=== PATIENT | female | born 2000 | race Caucasian/White ===

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

== ENCOUNTER 2022-06-12 19:27 | Emergency (ER) | payer MEDICAID, SELFPAY ==
[2022-06-12 19:33] VITALS: BP 112/87; PULSE 105; RESP 16; TEMP 36.7; O2SAT 98
[2022-06-12 19:55] LABS: Bilirubin Negative (Negative); Blood Negative (Negative); Clarity Cloudy (Clear); Glucose Negative (Negative); Ketones Negative (Negative); Leukocyte Esterase Negative (Negative); Nitrite Negative (Negative); Specific Gravity 1.025 (1.005-1.025); Urobilinogen 0.2 EU/dL (Up TO 0.2); pH 7.5 (5-8)
[2022-06-12 20:00] LABS: Abs Immature Grans 0.02 10^3/uL (0.0-0.06); Absolute Basophil Count 0.06 10^3/uL (0.0-0.2); Absolute Lymphocyte Count 1.69 10^3/uL (1.2-3.4); Absolute Monocyte Count 0.42 10^3/uL (0.1-0.8); Absolute Neutrophil Count 4.56 10^3/uL (1.2-6.7); Basophils % 0.9; Eosinophils % 1.5; HCT 45.6 % (36.0-46.0); HGB 14.8 g/dL (11.2-15.7); Immature Grans % 0.3; Lymphocytes % 24.7; MCH 28.2 pg (27.0-33.0); MCHC 32.5 % (32.0-36.0); MCV 87 fL (80-95); MPV 11.8 fL (8.0-11.0); Monocytes % 6.1; Neutrophils % 66.5; Platelet Count 221 10^3/uL (130-400); RBC 5.25 10^6/uL (3.93-5.22); RDW 12.7 % (11.7-14.6); RDW-SD 40.2 fL; WBC 6.85 10^3/uL (4.4-10.8)
[2022-06-12 20:14] LABS: ALT 24 U/L (14-59); AST 13 U/L (15-37); Albumin 4.1 g/dL (3.4-5.0); Alkaline Phosphatase 80 U/L (46-116); Anion Gap 6.3 mmol/L (3-11); BUN 10 mg/dL (7-18); Bilirubin, Total 0.2 mg/dL (0.2-1.0); CO2 31.7 mmol/L (21.0-32.0); Calcium 9.4 mg/dL (8.5-10.1); Chloride 105 mmol/L (98-107); Estimated GFR 83.23 (mL/min/1.73m2); Glucose 108 mg/dL (74-106); Lipase 105 U/L (73-393); Potassium 3.5 mmol/L (3.5-5.1); Sodium 143 mmol/L (136-145); Total Protein 8.4 g/dL (6.4-8.2)
--- NOTE | 2022-06-12 20:15 | DI.CT_ITS ---
Exam(s) CT ABDOMEN PELVIS W EXAM: CT ABDOMEN PELVIS W INDICATION: RLQ abd pain, vomiting, diarrhea. COMPARISON: No exams were available for comparison TECHNIQUE: FINDINGS: CT examination of the abdomen and pelvis was performed with intravenous infusion of 75 cc of Omnipaqu e 350. Images obtained through the lung bases are unremarkable. The liver is unremarkable in appearance. Gallbladder and bile ducts are CT normal. Pancreas appears normal. Spleen is unremarkable in appearance. Adrenals appear normal. The kidneys are unremarkable with no evidence of hydronephrosis, nephrolithiasis, or renal mass.. Ur inary bladder unremarkable. Abdominal aorta is of normal diameter and no major vascular abnormality is seen. No abdominal wall hernia. No abdominal or pelvic adenopathy. [employer] AD[employer] structures appear intact. Appendix is not specifically visualized but there is no evidence of appendicitis. No evidence of div erticulitis or bowel obstruction. IMPRESSION: Negative CT examination of the abdomen and pelvis. RADIATION DOSE DELIVERED: 506.77mGy.cm Total DLP 506.77mGy.cm Total DLP !Error CTDIvol RADIATION OPTIMIZATION: All CT scans at this facility use at least one of these dose optimization te chniques: automated exposure control; mA and/or kV adjustment per patient size (includes targeted exa ms where dose is matched to clinical indication); or iterative reconstruction.
--- NOTE | 2022-06-12 20:17 | ED.GENADUL_ITS ---
Discharge Plan Disposition Patient Disposition: HOME Condition: Improving Discharge Details Clinical Impression: Abdominal pain, vomiting, and diarrhea Primary Care Provider: Savanah Kennedy ED Provider: Tiara Lim Home Meds and New Rx's Prescriptions: Continued norgestimate-ethinyl estradiol [Estarylla] 0.25-35 mg-mcg Tablet 1 tab PO DAILY Discharge Instructions Instructions: Acute Nausea and Vomiting (ED), Acute Diarrhea (ED), Abdominal Pain (ED) Additional Instructions: Your blood test and imaging today are reassuring and show no evidence of acute concerning or significant findings. Drink plenty of fluids and get plenty of rest. Take the Zofran as needed and directed for nausea and vomiting. Follow-up with your primary care doctor in 1 week. Return to the emergency department with any worsening or new concerning symptoms. Stand Alone Forms: Work Release Discharge Data Discharge Physician: Tiara Lmi Medical Decision Making 21-year-old female presents with right-sided abdominal pain, nausea, vomiting and diarrhea for the past 6 days. Heart rate 105. Remainder of vitals within normal limits. Her abdomen is soft but tender throughout, mostly on the right side and right lower quadrant. No rigidity or guarding. Differential diagnosis includes appendicitis, colitis, gastroenteritis, UTI, pyelonephritis, ovarian cyst. Will place an IV, bolus IV fluids, screening labs, CT abdomen pelvis and give a dose of IV Toradol, IV Zofran and reassess. Labs and imaging reviewed and unremarkable. Normal white blood cell count. Normal electrolytes. Normal lipase. Urinalysis within normal limits. CT abdomen and pelvis negative for acute findings. Patient reassessed and she is still complaining of some burning abdominal pain. We will give a dose of Pepcid and GI cocktail and reassess. 2229 --patient reassessed and she feels much better and would like to go home. She was given Zofran to go. Advised to increase fluids and rest and follow-up bland diet until symptoms improved. Advised to follow up with the primary care doctor for re-evaluation. Usual and customary return precautions given prior to discharge. Medical Records Medical records reviewed: Yes I reviewed the patient's medical records. Imaging Data Radiologic Study: Radiologist's impression: CT Abdomen And Pelvis With Contrast Exam date and time: 06/12/2022 8:46 PM Age: 21 years old Clinical indication: Abdominal pain; Localized; Right lower quadrant (rlq); Patient HX: Rlq abd pain, vomiting, diarrhea; Additional info: R/O appendicitis, colitis, diverticulitis, pyelo TECHNIQUE: Imaging protocol: Computed tomography of the abdomen and pelvis with contrast. Radiation optimization: All CT scans at this facility use at least one of these dose optimization techniques: automated exposure control; mA and/or kV adjustment per patient size (includes targeted exams where dose is matched to clinical indication); or iterative reconstruction. Contrast material: OMNIPAQUE 350; Contrast volume: 75 ml; Contrast route: INTRAVENOUS (IV);? COMPARISON: No relevant prior studies available. FINDINGS: Liver: Normal. No mass. Gallbladder and bile ducts: Normal. No calcified stones. No ductal dilation. Pancreas: Normal. No ductal dilation. Spleen: Normal. No splenomegaly. Adrenal glands: Normal. No mass. Kidneys and ureters: Normal. No hydronephrosis. Stomach and bowel: There is no evidence of small or large bowel inflammation. There is no evidence for bowel obstruction. Appendix: No evidence of appendicitis. Intraperitoneal space: There is no free intraperitoneal air. There is no evidence of free intraperitoneal fluid. Vasculature: Unremarkable. No abdominal aortic aneurysm. Lymph nodes: Unremarkable. No enlarged lymph nodes. Urinary bladder: Unremarkable as visualized. Reproductive: Unremarkable as visualized. Bones/joints: Unremarkable. No acute fracture. Soft tissues: Unremarkable. IMPRESSION: No acute process within the abdomen or pelvis identified. Lab Data Lab results reviewed: Yes I reviewed the patient's lab results. Labs: Laboratory Tests Range/Units 06/12/22 06/12/22 06/12/22 19:45 19:53 19:53 WBC (4.4-10.8) 10^3/uL 6.85 RBC (3.93-5.22) 10^6/uL 5.25 H Hgb (11.2-15.7) g/dL 14.8 Hct (36.0-46.0) % 45.6 MCV (80-95) fL 87 MCH (27.0-33.0) pg 28.2 MCHC (32.0-36.0) % 32.5 RDW (11.7-14.6) % 12.7 Plt Count (130-400) 10^3/uL 221 MPV (8.0-11.0) fL 11.8 H Immature Gran % 0.3 Neutrophils % 66.5 Lymphocytes % 24.7 Monocytes % 6.1 Eosinophils % 1.5 Basophils % 0.9 Nucleated RBC % (0.0-0.3) % 0.0 Absolute Neutrophils (1.2-6.7) 10^3/uL 4.56 Absolute Lymphocytes (1.2-3.4) 10^3/uL 1.69 Absolute Monocytes (0.1-0.8) 10^3/uL 0.42 Absolute Eosinophils (0.0-0.7) 10^3/uL 0.10 Absolute Basophils (0.0-0.2) 10^3/uL 0.06 Sodium (136-145) mmol/L 143 Potassium (3.5-5.1) mmol/L 3.5 Chloride (98-107) mmol/L 105 Carbon Dioxide (21.0-32.0) mmol/L 31.7 Anion Gap (3-11) mmol/L 6.3 BUN (7-18) mg/dL 10 Creatinine (0.55-1.02) mg/dL 1.0 Est GFR (CKD-EPI 2020) (mL/min/1.73m2) 83.23 Glucose (74-106) mg/dL 108 H Calcium (8.5-10.1) mg/dL 9.4 Total Bilirubin (0.2-1.0) mg/dL 0.2 AST (15-37) U/L 13 L ALT (14-59) U/L 24 Alkaline Phosphatase (46-116) U/L 80 Total Protein (6.4-8.2) g/dL 8.4 H Albumin (3.4-5.0) g/dL 4.1 Lipase (73-393) U/L 105 Urine Color (Yellow) Yellow Urine Clarity (Clear) Cloudy Urine pH (5-8) 7.5 Ur Specific [place] (1.005-1.025) 1.025 Urine Protein (Negative) mg/dL Negative Urine Ketones (Negative) mg/dL Negative Urine Blood (Negative) Negative Urine Nitrite (Negative) Negative Urine Bilirubin (Negative) Negative Urine Urobilinogen (Up TO 0.2) EU/dL 0.2 Ur Leukocyte Esterase (Negative) Negative Urine Glucose (Negative) mg/dL Negative HPI General Mode of arrival: ambulatory . Date/Time Provider Initiated Documentation: 06/12/22 19:28 . Limitations to Documentation: no limitations . Information obtained by: patient . HPI Narrative: Patient is a 21-year-old female presents the ED with complaint of abdominal pain, nausea, vomiting and diarrhea for the past 6 days. She states her abdominal pain has been constant burning and intermittent sharp. She states the pain has been diffuse at times and is now mainly in her right side of her abdomen. She states the pain is worse with movement. She states the pain is currently 7/10. She has not taken any medication for pain today. She states she initially thought her symptoms were secondary to type food she ate 6 days ago. She states she vomited food 3 days ago and has been having difficulty eating due to nausea since then. She states she has had 2 episodes of loose brown diarrhea since her pain started. She denies any fever or urinary symptoms. She denies any recent travel or recent antibiotics. Related Data Home Medications Medication Instructions Recorded Confirmed norgestimate 0.25 mg-ethinyl 1 tab PO DAILY 06/12/22 06/12/22 estradiol 35 mcg tablet (Estarylla) Allergies Allergy/AdvReac Type Severity Reaction Status Date / Time flinstone vitamin gummie Allergy Uncoded 06/12/22 19:38 General Stated Complaint: Abd Prob MIESHA: 3 Review of Systems All systems reviewed & are unremarkable except as noted in HPI and below Constitutional Constitutional: Reports as per HPI, Denies chills and Denies fever(s) Eyes Eyes: Denies blurry vision ENT Ears, Nose, Mouth, and Throat: Denies dizziness, Denies sore throat and Denies throat swelling Cardiovascular Cardiovascular: Denies chest pain and Denies dyspnea Respiratory Respiratory: Denies cough and Denies dyspnea Gastrointestinal Gastrointestinal: Reports abdominal pain, Reports diarrhea, Reports nausea and Reports vomiting Genitourinary Genitourinary: Denies hematuria and Denies dysuria Musculoskeletal Musculoskeletal: Denies back pain and Denies numbness Integumentary/Breasts Skin/Breast: Denies lesions and Denies rash Neurologic Neurologic: Denies dizziness, Denies localized weakness and Denies numbness Allergic/Immunologic Allergic/Immunologic: Denies throat swelling PFSH All Active Problems (Updated 06/12/22 @ 22:34 by Tiara Lim DO) Abdominal pain, vomiting, and diarrhea (Acute) Medical History (Updated 10/19/22 @ 22:34 by Tiara Lim DO) No significant past medical history Surgical History (Updated 06/12/22 @ 20:27 by Tiara Lim DO) No significant past surgical history Social History Smoking/Tobacco Use Status: Never Smoking risk assessment performed?: Yes Drug use: Occasionally Substance use type: marijuana Exam Const General: cooperative and no acute distress Orientation: alert, awake and oriented x3 HENMT Head: normal to inspection Face and sinus: normal facial exam Eyes General: appearance normal, both eyes and all related structures Pupils: PERRL EOM: EOM intact bilaterally Neck Neck: normal visual inspection and No submandibular swelling Lymphatic: no lymphadenopathy noted Chest Chest: normal inspection of the chest and no tenderness Resp Effort & Inspection: normal respiratory effort and able to speak in complete sentences Auscultation: clear to auscultation bilaterally Cardio Rate: regular rate Rhythm: regular rhythm GI Inspection: normal to inspection Palpation: soft, not firm, not rigid and tender in the RLQ, in the RUQ and suprapubicly Auscultation: hypoactive bowel sounds Skin General skin exam: no rashes or lesions noted Neuro General: patient alert, patient awake and patient oriented x3 Cognition: normal cognition Speech: speech normal Motor: muscle tone normal throughout Sensory Exam: no sensory deficits noted Extrem General: normal to inspection, full ROM, capillary refill normal, no calf tenderness bilaterally and no edema Psych Appearance: grossly normal Mental Status: mental status grossly normal Speech and Movement: speech and movement normal Affect: normal affect Course Vital Signs Vital signs: Vital Signs Temperature 98.1 F 06/12/22 19:33 Pulse 105 H 06/12/22 19:33 Respiratory Rate 16 06/12/22 19:33 Blood Pressure 112/87 06/12/22 19:33 Pulse Oximetry 98 06/12/22 19:33 Temperature 98.1 F 06/12/22 19:33 Temperature Source Skin 06/12/22 19:33 Pulse 105 H 06/12/22 19:33 Respiratory Rate 16 06/12/22 19:33 Respiratory Effort 06/12/22 19:33 Blood Pressure 112/87 06/12/22 19:33 Blood Pressure Position Sitting 06/12/22 19:33 Pulse Oximetry 98 06/12/22 19:33 Oxygen Delivery Method Room Air 06/12/22 19:33 Oxygen Flow Rate 0 06/12/22 19:33 Pain Level 8 06/12/22 19:33 Lab/Test Results Lab/Test Results: Laboratory Tests Range/Units 06/12/22 06/12/22 06/12/22 19:45 19:53 19:53 WBC (4.4-10.8) 10^3/uL 6.85 RBC (3.93-5.22) 10^6/uL 5.25 H Hgb (11.2-15.7) g/dL 14.8 Hct (36.0-46.0) % 45.6 MCV (80-95) fL 87 MCH (27.0-33.0) pg 28.2 MCHC (32.0-36.0) % 32.5 RDW (11.7-14.6) % 12.7 Plt Count (130-400) 10^3/uL 221 MPV (8.0-11.0) fL 11.8 H Immature Gran % 0.3 Neutrophils % 66.5 Lymphocytes % 24.7 Monocytes % 6.1 Eosinophils % 1.5 Basophils % 0.9 Nucleated RBC % (0.0-0.3) % 0.0 Absolute Neutrophils (1.2-6.7) 10^3/uL 4.56 Absolute Lymphocytes (1.2-3.4) 10^3/uL 1.69 Absolute Monocytes (0.1-0.8) 10^3/uL 0.42 Absolute Eosinophils (0.0-0.7) 10^3/uL 0.10 Absolute Basophils (0.0-0.2) 10^3/uL 0.06 Sodium (136-145) mmol/L 143 Potassium (3.5-5.1) mmol/L 3.5 Chloride (98-107) mmol/L 105 Carbon Dioxide (21.0-32.0) mmol/L 31.7 Anion Gap (3-11) mmol/L 6.3 BUN (7-18) mg/dL 10 Creatinine (0.55-1.02) mg/dL 1.0 Est GFR (CKD-EPI 2020) (mL/min/1.73m2) 83.23 Glucose (74-106) mg/dL 108 H Calcium (8.5-10.1) mg/dL 9.4 Total Bilirubin (0.2-1.0) mg/dL 0.2 AST (15-37) U/L 13 L ALT (14-59) U/L 24 Alkaline Phosphatase (46-116) U/L 80 Total Protein (6.4-8.2) g/dL 8.4 H Albumin (3.4-5.0) g/dL 4.1 Lipase (73-393) U/L 105 Urine Color (Yellow) Yellow Urine Clarity (Clear) Cloudy Urine pH (5-8) 7.5 Ur Specific [place] (1.005-1.025) 1.025 Urine Protein (Negative) mg/dL Negative Urine Ketones (Negative) mg/dL Negative Urine Blood (Negative) Negative Urine Nitrite (Negative) Negative Urine Bilirubin (Negative) Negative Urine Urobilinogen (Up TO 0.2) EU/dL 0.2 Ur Leukocyte Esterase (Negative) Negative Urine Glucose (Negative) mg/dL Negative POC- Test(urine) Negative
[2022-06-12] MEDS: Omnipaque 350 MG/ML 100 ML BTL IJ (20:28)
[2022-06-12] MEDS: Normal Saline Flush 10 ML SYR IVP (20:29)
[2022-06-12] MEDS: Ketorolac 30 MG/ML VIAL IVP (20:34)
[2022-06-12] MEDS: Normal Saline 1,000 ML 1000 ML IV (20:35)
[2022-06-12] MEDS: Ondansetron 4 MG/2 ML VIAL IVP (20:36)
--- NOTE | 2022-06-12 21:19 | DI.VRAD_ITS ---
PROCEDURE INFORMATION: Exam: CT Abdomen And Pelvis With Contrast Exam date and time: 06/12/2022 8:46 PM Age: 21 years old Clinical indication: Abdominal pain; Localized; Right lower quadrant (rlq); Patient HX: Rlq abd pain, vomiting, diarrhea; Additional info: R/O appendicitis, colitis, diverticulitis, pyelo TECHNIQUE: Imaging protocol: Computed tomography of the abdomen and pelvis with contrast. Radiation optimization: All CT scans at this facility use at least one of these dose optimization techniques: automated exposure control; mA and/or kV adjustment per patient size (includes targeted exams where dose is matched to clinical indication); or iterative reconstruction. Contrast material: OMNIPAQUE 350; Contrast volume: 75 ml; Contrast route: INTRAVENOUS (IV); COMPARISON: No relevant prior studies available. FINDINGS: Liver: Normal. No mass. Gallbladder and bile ducts: Normal. No calcified stones. No ductal dilation. Pancreas: Normal. No ductal dilation. Spleen: Normal. No splenomegaly. Adrenal glands: Normal. No mass. Kidneys and ureters: Normal. No hydronephrosis. Stomach and bowel: There is no evidence of small or large bowel inflammation. There is no evidence for bowel obstruction. Appendix: No evidence of appendicitis. Intraperitoneal space: There is no free intraperitoneal air. There is no evidence of free intraperitoneal fluid. Vasculature: Unremarkable. No abdominal aortic aneurysm. Lymph nodes: Unremarkable. No enlarged lymph nodes. Urinary bladder: Unremarkable as visualized. Reproductive: Unremarkable as visualized. Bones/joints: Unremarkable. No acute fracture. Soft tissues: Unremarkable. IMPRESSION: No acute process within the abdomen or pelvis identified. Dictated and Authenticated by: Lon Rodriguez MD. Ordering:KAL Menjivar MD
[2022-06-12] MEDS: Famotidine 20 MG/2 ML VIAL IVP (21:48)
[2022-06-12 21:58] VITALS: BP 112/68; PULSE 88; RESP 18; TEMP 36.8; O2SAT 100
== END 2022-06-12 22:44 | disposition home or self-care (01) ==
PROVIDERS: Emergency Provider Physician Assistant; PCP Nurse Practitioner Family
DX: R10.31 Right lower quadrant pain (principal); R11.2 Nausea with vomiting, unspecified; R19.7 Diarrhea, unspecified
CPT/HCPCS: 80053; 81025; 83690; 96361; 96374; 96375; 99285; 74177; 81003; 85025; 99284; J1885; J2405; J3490

== ENCOUNTER 2022-07-10 17:12 | Outpatient (REF) | payer MEDICAID, SELFPAY | END 2022-07-10 17:13 | disposition home or self-care (01) | LOC: NCHCN 17:12 | PROVIDERS: PCP Nurse Practitioner Family; Visit Provider Family Medicine | DX: R30.0 Dysuria (principal) | CPT/HCPCS: 87077; 87086; 87186 ==

== ENCOUNTER 2022-07-20 10:27 | Emergency (ER) | payer MEDICAID, SELFPAY ==
[2022-07-20 10:35] VITALS: BP 111/79; PULSE 96; RESP 18; TEMP 36.9; O2SAT 100
--- NOTE | 2022-07-20 11:11 | ED.GENADUL_ITS ---
Discharge Plan Disposition Patient Disposition: Home Condition: Stable Discharge Details Clinical Impression: Tonsillitis Primary Care Provider: Savanah Kennedy ED Provider: Jesse Albarran Home Meds and New Rx's Prescriptions: New amoxicillin-pot clavulanate 875-125 mg tablet 1 tab PO BID Qty: 20 0RF Continued norgestimate-ethinyl estradiol [Estarylla] 0.25-35 mg-mcg Tablet 1 tab PO DAILY Discharge Instructions Instructions: Tonsillitis (ED) Additional Instructions: A single dose of Decadron and Augmentin was provided here in the ER. Continue Augmentin as directed. [id number] medications as directed for symptomatic control. Plenty of fluids to avoid dehydration. Salt water gargles as tolerated. Please watch for new or worsening symptoms and return to the ER for any concerns. Lastly, I do recommend contacting your primary care provider on Friday to discuss your ER visit and need for outpatient reevaluation. Medical Decision Making 21-year-old female who reports URI-like symptoms that began Friday but subsequently seems to have consolidated in her throat, reports throat swelling and pain worsening throughout the week. She states that she was actually seen by her PCP yesterday for her annual physical, evaluation revealed a negative s trep test, negative COVID test, likely viral and will treat with [id number] medications. She states this morning woke up much worse. Clinically she appears well, nontoxic, is afebrile, airway is patent. She does report subjective fevers, she does have cervical lymphadenopathy, and bilateral tonsillar hypertrophy with exudates. Airway is patent. She is able to manage her own secretions. Clinically I do believe that initiating antibiotic therapy is perfectly reasonable as well as a single dose of 10 mg p.o. Decadron. A rapid strep test was done per protocol and was negative. Symptoms have been worsening throughout the week, much worse this morning. No signs of peritonsillar or tonsillar abscess, trismus, nuchal rigidity, etc. Patient was able to tolerate p.o. Decadron and Augmentin with pudding here in the ER. Declined any viscous lidocaine for discomfort. Standard discharge and return precautions were provided. Patient understands, is agreeable to this plan, and has no additional questions or concerns upon discharge. This documentation was generated using [employer] system, please disregard any oddities of phrase or misspellings. Medical Records Medical records reviewed: Yes I reviewed the patient's medical records. Lab Data Lab results reviewed: Yes I reviewed the patient's lab results. Labs: 07/20/22 11:01 Pharynx Group A Streptococcus Culture - Pending Sign Out No HPI General Mode of arrival: ambulatory . Date/Time Provider Initiated Documentation: 07/20/22 10:44 . Limitations to Documentation: no limitations . Information obtained by: patient . History of Present Illness 21 year old F presents to the emergency department with the chief complaint of sore throat, described as moderate, with intensity rated at 7. Quality is described as aching, and is localized to the neck (throat). Patient reports no radiation. Patient started experiencing this day(s) (5) and it has been other (worsening). No relieving factors improve symptom(s), Other factors that worsen symptoms (swallowing) . Patient notes fever/chills (subjective). Patient did receive the following treatments prior to arrival, other (otc meds, no relief) Related Data Home Medications Medication Instructions Recorded Confirmed norgestimate 0.25 mg-ethinyl 1 tab PO DAILY 06/12/22 07/20/22 estradiol 35 mcg tablet (Estarylla) amoxicillin 875 mg-potassium 1 tab PO BID #20 tabs 07/20/22 clavulanate 125 mg tablet Previous Rx's Medication Instructions Recorded amoxicillin 875 mg-potassium 1 tab PO BID #20 tabs 07/20/22 clavulanate 125 mg tablet Allergies Allergy/AdvReac Type Severity Reaction Status Date / Time flinstone vitamin gummie Allergy Uncoded 07/20/22 10:38 General Stated Complaint: Sorethroat MIESHA: 4 Review of Systems Constitutional Constitutional: Reports fever(s) ENT Ears, Nose, Mouth, and Throat: Reports sore throat Cardiovascular Cardiovascular: Denies chest pain and Denies dyspnea Respiratory Respiratory: Denies cough and Denies dyspnea Gastrointestinal Gastrointestinal: Denies abdominal pain, Denies nausea and Denies vomiting Integumentary/Breasts Skin/Breast: Denies rash PFSH All Active Problems (Updated 07/20/22 @ 11:30 by ENZO Mejias) Tonsillitis (Acute) Medical History No significant past medical history Surgical History No significant past surgical history Social History Smoking/Tobacco Use Status: Never Smoking risk assessment performed?: Yes Drug use: Never Substance use type: does not use Do you feel safe at home: Yes Do you feel safe in your relationship?: Yes Exam Const General: cooperative, healthy appearing, comfortable and no acute distress Orientation: alert and awake [facility] Head: normal to inspection, normocephalic and atraumatic Ears: external ears normal, TM's normal bilaterally and EAC's normal General nose exam: external nose normal Face and sinus: normal facial exam Mouth: tongue normal and moist mucous membranes Throat: uvula midline, abnormal tonsil bilaterally exudates and hypertrophy 3+, no peritonsillar masses, posterior oropharynx abnormal erythema and exudates, uvula not displaced and no uvular edema Eyes General: appearance normal, both eyes and all related structures Conjunctivae: conjunctivae normal Neck Neck: normal visual inspection, full ROM, no meningeal signs, trachea midline, supple, lymphadenopathy bilateral anterior cervical and tender (Lymphadenopathy) Resp Effort & Inspection: normal respiratory effort and able to speak in complete sentences Auscultation: clear to auscultation bilaterally Cardio Rate: regular rate Rhythm: regular rhythm GI Palpation: soft and nontender Skin General skin exam: no rashes or lesions noted Neuro General: patient alert, patient awake, moves all extremities and no focal motor deficits Sensory Exam: no sensory deficits noted Psych Appearance: grossly normal Mental Status: mental status grossly normal Course Vital Signs Vital signs: Vital Signs Temperature 36.9 C 07/20/22 10:35 Pulse 96 H 07/20/22 10:35 Respiratory Rate 18 07/20/22 10:35 Blood Pressure 111/79 07/20/22 10:35 Pulse Oximetry 100 07/20/22 10:35 Temperature 36.9 C 07/20/22 10:35 Temperature Source Oral 07/20/22 10:35 Pulse 96 H 07/20/22 10:35 Respiratory Rate 18 07/20/22 10:35 Respiratory Effort Non-Labored 07/20/22 10:39 Blood Pressure 111/79 07/20/22 10:35 Blood Pressure Position Sitting 07/20/22 10:35 Pulse Oximetry 100 07/20/22 10:35 Oxygen Delivery Method Room Air 07/20/22 10:35 Oxygen Flow Rate 0 07/20/22 10:35 PAWSS Have you Been Recently Intoxicated or Drunk Within the Last 30 days?: No Have you Ever Experienced Previous Episodes of Alcohol Withdrawal?: No Have you ever Experienced Withdrawal Seizures?: No Have you ever Experienced Delirium Tremens(DT)s?: No Have you ever undergone Alcohol Rehabilitation Treatment (i.e, inpt ot outpatient treatment programs)?: No Have you ever Experienced Blackouts?: No Have you ever Combined Alcohol with other Downers within the last 90 days?: No Have you ever Combined Alcohol with any other Substance of Abuse during the last 90 days?: No Positive Blood Alcohol level on Presentation? [PCS.BAL]: No Evidence of Increased Autonomic Activity (i.e. HR>120, tremor, sweating, agitation, nausea)?: No Result: 0
[2022-07-20] MEDS: Dexamethasone 4 MG TAB 10 MG PO (11:31)
[2022-07-20] MEDS: Amoxicillin 875/Clav. 125 TAB PO (11:32)
== END 2022-07-20 12:10 | disposition home or self-care (01) ==
PROVIDERS: Emergency Provider Physician Assistant; PCP Nurse Practitioner Family
DX: J03.90 Acute tonsillitis, unspecified (principal); R59.0 Localized enlarged lymph nodes
CPT/HCPCS: 87880; 99283; 87081; 99284; J8540

== ENCOUNTER 2022-07-23 14:05 | Outpatient (REF) | payer MEDICAID, SELFPAY ==
[2022-07-23 14:44] LABS: HCT 40.9 % (36.0-46.0); HGB 13.1 g/dL (11.2-15.7); MCH 27.6 pg (27.0-33.0); MCV 86 fL (80-95); MPV 11.7 fL (8.0-11.0); Platelet Count 195 10^3/uL (130-400); RBC 4.74 10^6/uL (3.93-5.22); RDW 13.7 % (11.7-14.6); RDW-SD 43.8 fL; WBC 10.31 10^3/uL (4.4-10.8)
[2022-07-23 14:53] LABS: Mono Screening POSITIVE (Negative)
[2022-07-23 15:05] LABS: ALT 26 U/L (14-59); AST 21 U/L (15-37); Albumin 3.3 g/dL (3.4-5.0); Alkaline Phosphatase 74 U/L (46-116); Anion Gap 5.9 mmol/L (3-11); BUN 7 mg/dL (7-18); Bilirubin, Total 0.4 mg/dL (0.2-1.0); CO2 29.1 mmol/L (21.0-32.0); CREATININE 0.8 mg/dL (0.55-1.02); Chloride 100 mmol/L (98-107); Estimated GFR 108.78 (mL/min/1.73m2); Glucose 86 mg/dL (74-106); Potassium 3.8 mmol/L (3.5-5.1); Sodium 135 mmol/L (136-145); Total Protein 7.7 g/dL (6.4-8.2)
[2022-07-23 15:11] LABS: Absolute Eosinophil Count 0.21 10^3/uL (0.0-0.7); Absolute Lymphocyte Count 2.89 10^3/uL (1.2-3.4); Absolute Monocyte Count 1.34 10^3/uL (0.1-0.8); Absolute Neutrophil Count 5.88 10^3/uL (1.2-6.7); Atypical Lymphocytes % 12; Bands % 2; Diff Comment Manual Differential; RBC Morphology Normal
== END 2022-07-23 14:06 | disposition home or self-care (01) ==
LOC: NCHCN 14:05
PROVIDERS: PCP Nurse Practitioner Family; Visit Provider Nurse Practitioner Family
DX: J03.90 Acute tonsillitis, unspecified (principal)
CPT/HCPCS: 80053; 85025; 86308

== ENCOUNTER 2022-09-12 13:12 | Outpatient (REF) | payer MEDICAID, SELFPAY ==
[2022-09-14 11:51] LABS: COVID-19 RT-PCR UVMMC Result Negative (Negative)
== END 2022-09-12 13:13 | disposition home or self-care (01) ==
LOC: LBN 13:12
PROVIDERS: PCP Nurse Practitioner Family; Visit Provider Physician Assistant Medical
DX: Z20.822 Contact with and (suspected) exposure to COVID-19 (principal); J03.90 Acute tonsillitis, unspecified
CPT/HCPCS: U0003

== ENCOUNTER 2023-11-04 21:12 | Outpatient (REF) | payer SELFPAY | END 2023-11-04 21:13 | disposition home or self-care (01) | LOC: LBN 21:12 | PROVIDERS: PCP Nurse Practitioner Family; Visit Provider Nurse Practitioner Family | DX: R07.0 Pain in throat (principal); B34.9 Viral infection, unspecified | CPT/HCPCS: 87070 ==

== ENCOUNTER 2023-11-10 01:40 | Emergency (ER) | payer SELFPAY ==
[2023-11-10 01:43] VITALS: BP 111/70; PULSE 101; RESP 18; TEMP 36.5; O2SAT 96
--- NOTE | 2023-11-10 01:54 | W.ED.GENAD ---
Discharge Plan Disposition Patient Disposition: Home Condition: Good Discharge Details Clinical Impression: Acute left otitis media, URI, acute, Strep throat Primary Care Provider: Savanah Kennedy ED Provider: Charly Reynolds Home Meds and New Rx's Prescriptions: New amoxicillin-pot clavulanate [Augmentin] 250-62.5 mg/5 mL suspension for reconstitution 17.5 ml PO BID 7 Days Qty: 245 0RF No Action norgestimate-ethinyl estradiol [Estarylla] 0.25-35 mg-mcg Tablet 1 tab PO DAILY Discharge Instructions Instructions: Ear Infection (ED), Upper Respiratory Infection (ED) Additional Instructions: At this time your results are positive for strep throat, as well as a left-sided ear infection. Please continue to take 600 mg of Motrin every 6 hours and 750 mg of Tylenol every 6 hours for pain and swelling. You have been given a dose of steroids which will help get your tonsils down in size. Please take the antibiotic for coverage of the bacterial infection. I will contact you if your results of the COVID flu or RSV are positive. If you notice any worsening of your symptoms, or any new symptoms such as vomiting, diarrhea, fever, chills, shortness of breath, chest pain, numbness, weakness, or fainting , please return immediately to the emergency department for reevaluation. Please follow up with your primary care provider as soon as possible for reassessment and reevaluation. As always, it was a pleasure participating in your medical care today. Stand Alone Forms: Work Release HPI General Date/Time Provider Initiated Documentation: 11/10/23 01:42. HPI Narrative: This is a pleasant 23-year-old female with no significant past medical history who presents today for evaluation of fever chills sore throat. Patient states that about a week or so ago she was exposed to someone who had the flu. She does work at a daycare center. On 11/05/2023 she went to urgent care, flu test was negative at that time, and she was recommended for continued supportive care. Unfortunately she has had continued worsening of her symptoms of sore throat, chills, intermittent fever. She denies any cough. Mild myalgias and achiness throughout. No vomiting or diarrhea. Mild headache. No neck pain or stiffness. She has been taking Tylenol but this has not been significantly helping. She does not take pills. She has no other complaints at this time. No other modifying factors. Related Data Home Medications Medication Instructions Recorded Confirmed norgestimate 0.25 mg-ethinyl 1 tab PO DAILY 06/12/22 11/10/23 estradiol 35 mcg tablet (Estarylla) amoxicillin 250 mg-potassium 17.5 ml PO BID 7 days #245 mL 11/10/23 clavulanate 62.5 mg/5 mL oral suspension (Augmentin) Previous Rx's Medication Instructions Recorded amoxicillin 250 mg-potassium 17.5 ml PO BID 7 days #245 mL 11/10/23 clavulanate 62.5 mg/5 mL oral suspension (Augmentin) Allergies Allergy/AdvReac Type Severity Reaction Status Date / Time flinstone vitamin gummie Allergy Skin Rash Uncoded 11/10/23 01:53 General Stated Complaint: GenMedical MIESHA: 3 Review of Systems All systems reviewed & are unremarkable except as noted in HPI and below Exam Narrative Exam Narrative: 1.Const: Well-nourished, Well-developed, appearing stated age 2.Eyes: PERRL, no conjunctival injection, and symmetrical lids. 3.ENT: Atraumatic external nose and ears. Moist MM. Neck: Symmetric, trachea midline, No thyromegaly. Mild tonsillar enlargement bilaterally, tonsil group size is 3+. Mild evidence of left-sided otitis media. Right tympanic membrane unremarkable. Patient demonstrates good movement of cervical neck. There is no nuchal rigidity, no nuchal tenderness. Patient is able to flex the neck without any difficulty or significant pain. Negative Kernig's and Brudzinski sign. 4.CVS: +S1/S2, No murmurs or gallops. Peripheral pulses 2+ and equal in all extremities. Brisk capillary refill in all extremities. 5.RESP: Unlabored respiratory effort. Clear to auscultation bilaterally. No wheezes rales or rhonchi 6.GI: Soft, Nontender/Nondistended, No hepatosplenomegaly. No guarding or rebound. 7.MSK: Normocephalic/Atraumatic, Extremities w/o deformity or ttp No cyanosis or clubbing, Normal movement of all extremities 8.Skin: Warm, Dry. No rashes or lesions. 9.Neuro: hiv prevention specialist II-XII grossly intact. Sensation grossly intact, no focal neurologic deficits. 10.Psych: (AAO) x3. Appropriate mood and affect Course Vital Signs Vital signs: Vital Signs Temperature 36.5 C 11/10/23 01:43 Pulse 101 H 11/10/23 01:43 Respiratory Rate 18 11/10/23 01:43 Blood Pressure 111/70 11/10/23 01:43 Pulse Oximetry 96 11/10/23 01:43 Temperature 36.5 C 11/10/23 01:43 Pulse 101 H 11/10/23 01:43 Respiratory Rate 18 11/10/23 01:43 Respiratory Effort Normal 11/10/23 01:48 Respiratory Depth Normal 11/10/23 01:48 Respiratory Pattern Normal 11/10/23 01:48 Blood Pressure 111/70 11/10/23 01:43 Pulse Oximetry 96 11/10/23 01:43 Oxygen Delivery Method Room Air 11/10/23 01:43 Oxygen Flow Rate 0 11/10/23 01:43 Pain Level 8 11/10/23 01:43 Medical Decision Making This is a pleasant 23-year-old female with no significant past medical history who presents today for evaluation of fever chills sore throat. Patient states that about a week or so ago she was exposed to someone who had the flu. She does work at a daycare center. On 11/05/2023 she went to urgent care, flu test was negative at that time, and she was recommended for continued supportive care. Unfortunately she has had continued worsening of her symptoms of sore throat, chills, intermittent fever. She denies any cough. Mild myalgias and achiness throughout. No vomiting or diarrhea. Mild headache. No neck pain or stiffness. She has been taking Tylenol but this has not been significantly helping. She does not take pills. She has no other complaints at this time. No other modifying factors. Exam demonstrates well-appearing female, no meningeal signs, no neck stiffness. She does have mild left-sided otitis media, as well as mild to moderate enlargement of tonsils. Tonsil size is around a 3+. Tonsils are not touching. Airway if not obstructed. With the patient's evidence of otitis media, we will treat this with Augmentin on an outpatient basis. With the patient's tonsils, we will test for strep. We will test for flu COVID and RSV. Patient would like to go home, and we will contact her with the results. We will give Motrin here, as well as a dose of Decadron for coverage of her enlarged tonsils. No severe purulence on the tonsils, no evidence of fulminant tonsillitis requiring surgical management. Patient otherwise stable for discharge. Discussed red flags for which to return. I have extensively reviewed the treatment plan and discharge instructions with the patient. I have addressed all patient concerns at this time. The patient was made aware of what symptoms to monitor for that would warrant a return to the emergency department. Discussed the plan with the patient, they demonstrate verbal understanding and agreement with our assessment and plan at this time. The documentation in this chart was dictated using [employer] dictation software. Please excuse any dictation errors. Strep test is positive. Patient was informed. Augmentin has been sent to her pharmacy. COVID flu and RSV has returned negative. Contacted the patient discussed this with her. Quality:SDOH Health Related Social Needs: No Data to Display PFSH All Active Problems (Updated 11/10/23 @ 02:06 by Charly Reynolds DO) Strep throat (Acute) URI, acute (Acute) Acute left otitis media (Acute) Medical History No significant past medical history Surgical History No significant past surgical history Social History Smoking/Tobacco Use Status: Never Smoking risk assessment performed?: Yes Drug use: Never Substance use type: does not use Do you feel safe at home: Yes Do you feel safe in your relationship?: Yes
[2023-11-10] MEDS: Ibuprofen 100 MG/5 ML CUP 800 MG PO (02:03)
[2023-11-10] MEDS: Dexamethasone 10 MG/ML VIAL PO (02:03)
[2023-11-10 02:28] LABS: COVID-19 PCR Negative (Negative); Influenza A PCR Negative (Negative); Influenza B PCR Negative (Negative); RSV PCR Negative (Negative); Source Nasopharynx
== END 2023-11-10 02:11 | disposition home or self-care (01) ==
LOC: ER 02:26
PROVIDERS: Emergency Provider Student in an Organized Health Care Education/Training Program; PCP Nurse Practitioner Family
DX: J02.0 Streptococcal pharyngitis (principal); R50.9 Fever, unspecified; J06.9 Acute upper respiratory infection, unspecified; H66.92 Otitis media, unspecified, left ear; Z20.828 Contact with and (suspected) exposure to other viral communicable diseases
CPT/HCPCS: 87637; 87880; 99283; J1100

== ENCOUNTER 2024-09-22 09:42 | Outpatient (REF) | payer OTHER, SELFPAY ==
--- OUTSIDE RECORDS SUMMARY | 2024-09-22 09:44 | XMS_ITS | Encounter Summary ---
Author Organization [facility] Address [address] [place] [address] Care Team Providers Care Field Training Manager Name Role Phone Savanah Kennedy SUSANA Primary Care Provider [phone] Encounter Details Date Type Department Care Team (Late st Contact Info) Description 09/09/2011 Results Only [facility] Pediatric Endocrinology - [facility] [address] [place], [place] [id number] Maddy Romero MD [address] [address] Social History Tobacco Use Types Packs/Day Years Used Date Smoking Tobacco: Never Assessed Comments Unknown Sex and Gender Information Value Date Recorded Sex Assigned at Female 08/15/2024 1:13 EST Legal Sex Female 18:33 EST Gender Identity Female 09/12/2022 14:14 EST Sexual Orientation Not on file documented as of this encounter Plan of Treatment Upcoming Encounters Date Type Department Care Team (Late st Contact Info) Description 11/18/2024 8:50 EDT Office Visit [facility] ENT [address] [place] [address] Varinder Parson MD [address] [facility] [address] [place] [address] documented as of this encounter Procedures Procedure Name Priority Date/Time Associated Diagnosis Comments SMEAR REVIEW Routine 09/09/2011 14:54 EST CYTOGENETICS Routine 09/09/2011 0:00 EST documented in this encounter Results * SMEAR REVIEW (09/09/2011 14:54 EST) Smear scan only: Slide was examined by a technologist to verify the WBC and/or platelet count. RITA PEREIRA 09/09/2011 14:5 4 EST 09/09/2011 15:07 EST us Maddy Romero MD HEMATOLOGY & PF4 ORDERABLES Fi nal Result RITA AMBROSIO [facility] [address] [place] [address] * CYTOGENETICS (09/09/2011 0:00 EST) Pathology Report: CYTOGENETICS REPORT Reports generated via electronic interface contain original data; however they are lacking the format of the original report. Caution should be taken when reading/interpreti ng unformatted reports. Name: ? EVERARDO PEREZ ? Accession #: ? [id number] : ? 2000 (Age: 11) ??F ?Collect Date: ? 09/09/2011 Location: ? [facility] ? Receive Date: ? 09/09/2011 Provider: ? MADDY HUYNH MD Copy to: ?SOTO HAMMER MD ? INTERPRETATION: ? Normal female karyotype ? Document reviewed and electronically signed by: ? SOTO HAMMER MD ? Report Date: ??09/25/2011 17:02 CLINICAL HISTORY: ? Failure to thrive ? clinical diagnosis code: ??783.41 SPECIMEN: ? Peripheral Blood ?? TEST PERFORMED: ? G-banded Karyotype ?? REPORT: ? No. Cells Counted: ??20 No. Cells Analyzed: ??7 No. Cells Karyotyped: ??7 Band Resolution: ??700-800 KARYOTYPE: ? 46,XX End of Report RITA PEREIRA 09/09/2011 09/09/2011 15: 27 EST us Maddy Romero MD PATHOLOGY ORDERABLES Final Res ult Performing Organization Address City/State/[facility] Co de Phone Number SALINASJESENIA PEREIRA [address] [place] [address] documented in this encounter Visit Diagnoses Not on filedocumented in this encounter Care Teams Field Training Manager Relationship Specialty Start Date End Date Savanah Kennedy FNP [address] [place] [address] PCP - General 07/03/11 06/16/17 documented as of this encounter
--- OUTSIDE RECORDS SUMMARY | 2024-09-22 09:44 | XMS_ITS | Encounter Summary ---
Author Organization [facility] Address [address] [place] [address] Care Team Providers Care Supervisor Fusing Room Name Role Phone Savanah Kennedy SUSANA Primary Care Provider [phone] Reason for Visit * Reason Onset Date Comments Results 09/17/2011 Encounter Details Date Type Department Care Team (Late st Contact Info) Description 09/17/[address] [facility] Pediatric Endocrinology - [facility] [place] [address] [place], [place] [id number] Teri Sanchez, [place] [address] [place] [address] FTT (failure to thrive) (Primary Dx) Social History Tobacco Use Types Packs/Day Years [...] Info) Description 11/18/2024 8:50 EDT Office Visit [facility] ENT [address] [place] [address] Varinder Parson MD [address] [facility] [address] [place] [address] documented as of this encounter Procedures Procedure Name Priority Date/Time Associated Diagnosis Comments FOLATE Routine 05/08/2011 URINE CHEMICAL (DIP) & SEDIMENT (MICRO) WITHOUT REFLEX TO CULTURE Routine 04/28/2011 SED RATE Routine 04/28/2011 COMPLETE BLOOD COUNT Routine 04/28/2011 TSH Routine 04/28/2011 COMPREHENSIVE METABOLIC PANEL (CMP) Routine 04/28/2011 documented in this encounter Results * FOLATE (05/08/2011) Folate, External >24.0 3 - 17 EXTERNAL LAB Blood specimen (specimen) 05/08/2011 Historical Provider CHEMISTRY & BLOOD GAS ORD ERABLES Edited EXTERNAL LAB * (ABNORMAL) COMPREHENSIVE METABOLIC PANEL (CMP) (04/28/2011) GFR, Calculated, External EXTERNAL LAB Glucose, Serum, External 80 EXTERNAL LAB Albumin, External EXTERNAL LAB Total Alkaline Phosphatase, External 321 EXTERNAL LAB ALT, External 29(A) 30 - 65 EXTERNAL LAB AST, External 21 EXTERNAL LAB BUN, External 13 EXTERNAL LAB Calculated Calcium, External EXTERNAL LAB Calcium, External 9.4 EXTERNAL LAB Chloride, External 103 EXTERNAL LAB CO2, External 28.8 EXTERNAL LAB Creatinine, External 0.5(A) 0.6 - 1.0 EXTERNAL LAB Fasting?, External EXTERNAL LAB Potassium, External 4.1 EXTERNAL LAB Sodium, External 139 EXTERNAL LAB Total Protein, External 7.3 EXTERNAL LAB Bilirubin, Total, External 0.32 EXTERNAL LAB Blood specimen (specimen) 04/28/2011 Historical Provider CHEMISTRY & BLOOD GAS ORD ERABLES Final Result EXTERNAL LAB * HEMAGRAM (04/28/2011) HCT, External EXTERNAL LAB MCH, External EXTERNAL LAB MCV, External EXTERNAL LAB MCHC, External EXTERNAL LAB Hemoglobin, External EXTERNAL LAB WBC, External 4.06 EXTERNAL LAB RBC, External EXTERNAL LAB PLT, External EXTERNAL LAB RDW-CV, External EXTERNAL LAB Blood specimen (specimen) 04/28/2011 Result [facility] Historical Provider HEMATOLOGY & PF4 ORDERABL ES Final Result Performing Organization Address [facility] Co de Phone Number EXTERNAL LAB * SED. RATE:WESTERGREN (04/28/2011) Sed. Rate Westergren, External 8 EXTERNAL LAB Blood specimen (specimen) 04/28/2011 Result [facility] Historical Provider HEMATOLOGY & PF4 ORDERABL ES Final Result Performing Organization Address [facility] de Phone Number EXTERNAL LAB * TSH (04/28/2011) TSH, External 2.30 0.36 - 3.74 EXTERNAL LAB Blood specimen (specimen) 04/28/2011 Result [facility] Provider CHEMISTRY & BLOOD GAS ORD ERABLES Final Result Performing Organization Address [facility] de Phone Number EXTERNAL LAB * UA WITH MICROSCOPIC (04/28/2011) Protein UA, External neg EXTERNAL LAB pH UA, External EXTERNAL LAB UA Comment, External EXTERNAL LAB Specific [place], Urine, External 1.020 EXTERNAL LAB Squam Epithel, UA, External EXTERNAL LAB Glucose UA, External neg EXTERNAL LAB WBC UA, External EXTERNAL LAB Blood UA, External EXTERNAL LAB Bilirubin UA, External EXTERNAL LAB Nitrite UA, External neg EXTERNAL LAB Leukocyte Esterase UA, External neg EXTERNAL LAB Clarity UA, External EXTERNAL LAB Renal Epithelial, External EXTERNAL LAB Bacteria, External EXTERNAL LAB Mucus, UA, External EXTERNAL LAB Ketones UA, External neg EXTERNAL LAB Casts, External EXTERNAL LAB Color UA, External EXTERNAL LAB Crystals, External EXTERNAL LAB RBC UA, External EXTERNAL LAB Urobilinogen UA, External EXTERNAL LAB Urine specimen (specimen) 04/28/2011 Result [facility] Historical Provider URINALYSIS ORDERABLES Fin al Result EXTERNAL LAB documented in this encounter Visit Diagnoses Diagnosis FTT (failure to thrive)- Primary Failure to thrive in childhood documented in this encounter Care Teams Supervisor Fusing Room Relationship Specialty Start Date End Date Savanah Kennedy FNP [address] [place] [address] PCP - General 07/03/11 06/16/17 documented as of this encounter
--- OUTSIDE RECORDS SUMMARY | 2024-09-22 09:44 | XMS_ITS | Encounter Summary ---
Author Organization [facility] Address [address] [place] [address] Care Team Providers Care Deputy Felony Clerk Name Role Phone Savanah Kennedy SUSANA Primary Care Provider [phone] Reason for Visit * Reason Comments Failure To Thrive Encounter Details Date Type Department Care Team (Latest Contact Info) Description 09/09/2011 13:00 EST Office Visit [facility] Pediatric Endocrinology - [facility] [address], [place] [address] Maddy Romero MD [id number] [address] FTT (failure to thrive) (Primary Dx) Discharge Disposition: Auto Discharge Social History Tobacco Use Types Packs/Day Years Used Date Smoking Tobacco: Never Assessed Comments Unknown Sex and Gender Information Value Date Recorded Sex Assigned at Female 08/15/2024 1:13 EST Legal Sex Female 18:33 EST Gender Identity Female 09/12/2022 14:14 EST Sexual Orientation Not on file documented as of this encounter Last Filed Vital Signs Vital Sign Reading Time Taken Comments Blood Pressure 106/50 09/09/2011 1248 EST Pulse 82 09/09/2011 1248 EST Temperature - - Respiratory Rate - - Oxygen Saturation - - Inhaled Oxygen Concentration - - Weight 21.7 kg (47 lb 13.4 oz) 09/09/2011 1248 EST Height 122.4 cm (4' 0.17) 09/09/2011 1 248 EST 122.35, 122.35, 122.35 Body Mass Index 14.5 09/09/2011 1248 EST Body Mass Index Percentile 14.51% 09/09 1248 EST Growth Chart: CDC (Girls, 2- 20 Years) documented in this encounter Discharge Disposition Disposition Code Departure Means Destination Auto Discharge documented in this encounter Progress Notes * Maddy Olvera MD - 09/09/20112046 EST Pediatric Endocrinology Consult Patient Identification: 11 y.o. 0 m.o. old female Reason for consultation: failure to thrive with a poor weight gain Date of service: 09/09/2011 Requesting Provider: Savanah Kennedy Primary Care Provider: Savanah Kennedy FNP History obtained from: patient, parents and chart review HPI: Individuals concerned: mother and primary care physician Growth concern: both height and weight but slow/no weight gain more concerning lately Growth limitations: none reported Growth pre-occupation: no Teasing/Bullying: no Vandana has been always tiny. She has been growing bellow but parallel (for her height and weight) to the 5th percentile since age 6 years. Her weight gain has been suboptimal, as per parents, she did not gain any weight for the last year. She was briefly taking Pediasure shakes and was on high protein diet for a month in the past, as per parents she still did not gain any weight. Based on PCP's note, with increased caloric intake, Vandana did seem to gain weight quite nicely, however subsequent month has not gain any. Itwas unclear to me if at that time, she was on supplements. Vandana eats frequently, but parents admit that she is very picky. Her meal portions are similar toher 2 years older sister who is reportedly average height and weight. Vandana has daily bowel movements, recently more loose, diarrhea like without blood, mucous or fat particles. She does not complain of abdominal pain, has no nausea or frequent emesis. Lately, she was loosing clumps of hair, possibly having small bald spot in occipital area. Mom is not sure if Vandana ever had a hair growth in that spot. Vandana has not been loosing any other hair.Since mom cut Vandana's hair much shorter, it seems to be stronger and falling out less. Vandana sleeps well through the night, she has been always very energetic. Of note, she got first baby tooth at age 8 mo and lost the first primary tooth at age 6 years. Positive for: Poor weight gain: did not gain any weight for the past year Picky eater Hair loss: in clumps, noted small bald spot in occiput, unclear if ever hair growth in that area, no other body hair loss Nocturia: occasionally, no recent increase in frequency; no polyuria, no polydipsia, no enuresis Snoring, no reported apnea Dry skin: always, in winter usually worse Diarrhea: lately stool loose, diarrhea like Negative for: headaches, visual changes, fatigue, temperature intolerance, abdominal pain, constipation, polyuria, polydipsia and arthralgias Review of Systems: A ten point review of systems was performed. Pertinent items are noted in the HPI, all others are negative. Problem List Patient Active Problem List Diagnoses ??? FTT (failure to thrive) Petite, Ht & Wt proportional; poor weight gain, reported normal linear growth. Battery of screening labs sent. Past Medical History: History reviewed. No pertinent past medical history. History: Length: 19.5 inches Weight: 3062 g (6 lb 12 oz) One: Two: Ten: Delivery Method: Vaginal, Spontaneous Delivery [250] Gestational Age: 40 Comments: Medications: No current outpatient prescriptions on file. Allergies: Allergies Allergen Reactions ??? Other - See Comments Cassidy's Drug Multivitamin- Patient's skin turned red from head to toe Social History: Living Conditions ??? Lives with Parents Weekdays ??? Education Grade 3 ??? Reported academic performance Excellent Family History: family history includes Diabetes in an other family member; Heart Attack Under 50 in her maternal grandfather; High Cholesterol in her paternal grandfather, paternal grandmother, and another family member; Hypertension in her maternal grandfather and maternal uncle; Short Stature in her mother and another family member; and Thyroid Disease in her paternal grandmother. There is no history of Thyroid Cancer/Nodule, and Infertility, and in Infancy, and SIDS, and Cystic Fibrosis, and Inflammatory Bowel Disease, and Crohn's Disease, and Celiac Disease, . Family Stature History: Mother: height 4 ft 11.5 in inches and menarche at 13-14 years old Father: height 5 ft 9 in inches and puberty same as peers Physical Exam: Vitals: BP 106/50 Pulse 82 Ht 122.4 cm (48.17) Wt 21.7 kg (47 lb 13.4 oz) BMI 14.50 kg/m2 80.5% systolic and 22.9% diastolic of BP percentile by age, sex, and height. Height: 1.224 m (4' 0.17) (3.55%) Weight: 21.7 kg (47 lb 13.4 oz) (3.24%) Body mass index is 14.50 kg/(m^2). 14.68% of growth percentile based on BMI-for-age. General Appearance: comfortable, well-hydrated and in no apparent distress Dysmorphisms: none appreciated Head: normocephalic ENT: moist mucous membranes and oropharnyx clear Eyes: EOMI, TABATHA and normal undilated fundoscopy Thyroid: no palpable goiter Lymphatic: no palpable lymphadenopathy of neck Respiratory: clear, no wheezes or crackles and good air entry bilaterally Cardiovascular: RRR, normal S1 and S2 and no murmur Gastrointestinal: benign, soft, non-tender, no palpable masses and no hepatosplenomegaly Neurologic: cranial nerves II-XII intact, 2+ DTRs and no tremor Musculoskeletal: no appreciable bony deformities, no clubbing and no scoliosis Skin: normal temperature, normal texture, normal turgor, no hyperpigmentation and no LB spots Sexual Development: deferred Data Review/Investigations: Date: 05/08/11 TSH 2.3 CBC normal, ESR 8 CMP normal UA: 12/1019, negative protein/glucose/ketones Previous Growth Data: reviewed growth curves provided by referring physician and scanned to PRISM ht and wt curve for age at one curve, no percentiles available linear growth appears steady weight gain fluctuating with episodes of weight loss between the visits Assessment: 11 y.o. 0 m.o. old female with no significant past medical history who is of a petite size. Vandana has been growing at/bellow but parallel to the 5th percentile for her height and weight with recent (over the last year) poor weight gain. Reportedly she has a good appetite but is a picky eater, lately has had loose stools, no other GI complains. She has some basic labs done with normal results, including normal TSH as of 04/2011. In the view ofdiarrhea like stools, I recommend celiac screen and I included few additional test for possible causes of poor weight gain and short stature to complete the work up. As suboptimal weight gain seems to be more an issue (than poor linear growth), I recommended to focus on consistent increase of caloric intake, Pediasure would be an option. Nutritional evaluation might be helpful to provide family more guidance. Vandana's current height, although at the lower end of the growth curve, is within her genetic potential based on reported parental heights. Bone age to evaluate her skeletal maturation will be done after visit today. 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 Maddy Olvera MD 09/09/2011 Addendum: CMP normal, FT4 1.1, TSH 1.55, CBC normal, rest of the labs pending. Bone age: CA 9, BA 7 10/12 as per radiology report (carpal 8 10/12, distal 7 10/12 as per my reading)--> minimally delayed Predicted adult height 58.7-60.5, within genetic potential (mid parental height 61.7 in, -2 SD 57.7in). documented in this encounter Plan of Treatment Upcoming Encounters Date Type Department Care Team (Late st Contact Info) Description 11/18/2024 8:50 EDT Office Visit [facility] ENT [address] [place] [address] Varinder Parson MD [address] [place] [address] [address] documented as of this encounter Procedures Procedure Name Priority Date/Time Associated Diagnosis Comments BONE AGE STUDIES Routine 09/09/2011 14:3 3 EST FTT (failure to thrive) documented in this encounter Results * VITAMIN D (25,OH) (09/09/2011 14:54 EST) 25OH Vitamin D Tot 25.9 ng/ml [facility] Comment: Reference Range: <10 ng/ml: Deficient 10-30 ng/ml: Insufficient 30-100 ng/ml: Sufficient >100 ng/ml: Toxic Blood specimen (specimen) 09/09/2011 14:54 EST 09/09/2011 15:07 EST Maddy Romero MD CHEMISTRY & BLOOD GAS ORDERABL ES Final Result Performing Organization Address [facility] Phone Number [facility] [address] [place] [address] * INSULIN-LIKE GROWTH FACTOR BINDING PROTEIN 3 (IGFBP-3), SERUM (09/09/2011 14:54 EST) Pathologist [facility] IGFBP-3 4.0 mcg/mL [facility] Comment: (Note) -- REFERENCE VALUE -- 1.8-7.1 Alok Stages: ? Females: I ? 1.4-5.2 II ?2.3-6.3 III ?? 3.1-8.9 IV ?3.7-8.7 V ? 2.6-8.6 Performed by: [facility] [place], [address], [place] [address], Demolition Worker: Victoria Cheng, Ph.D. Blood specimen (specimen) 09/09/2011 14:54 EST 09/09/2011 15:07 EST Maddy Romero MD CHEMISTRY & BLOOD GAS ORDERABL ES Final Result Performing Organization Address [facility] Phone Number [facility] [address] [place] [address] * INSULIN LIKE GROWTH FACTOR I (IGF-1) (09/09/2011 14:54 EST) Insulin-Like Growth Factor 1, S 135 ng/mL [facility] Comment: (Note) -- REFERENCE VALUE -- 81-389 0.1 percentile = 52 ng/mL Performed by: [facility], [address], [place] [address], Demolition Worker: Victoria Cheng, Ph.D. Blood specimen (specimen) 09/09/2011 14:54 EST 09/09/2011 15:07 EST us Maddy Romero MD CHEMISTRY & BLOOD GAS ORDERABL ES Final Result Performing Organization Address [facility] de Phone Number [facility] [address] [place] [address] * IGA (09/09/2011 14:54 EST) Pathologist [facility] IgA 62 45 - 237 mg/dl [facility] Blood specimen (specimen) 09/09/2011 14:54 EST 09/09/2011 15:07 EST us Maddy Romero MD CHEMISTRY & BLOOD GAS ORDERABL ES Final Result Performing Organization Address [facility] [place] [address] * TTG AB, IGA, S (09/09/2011 14:54 EST) Pathologist [facility] tTG Ab, IgA, S <1.2 <4.0 (Negative) U/mL [facility] Comment: Performed or Referred by: [facility], [address] [place] [address], Lab Dir: Nathan Fonseca III, MD Blood specimen (specimen) 09/09/2011 14:54 EST 09/09/2011 15:07 EST us Maddy Romero MD IMMUNOLOGY AND SEROLOGY ORDERA BLES Final Result Performing Organization Address [facility] Co de Phone Number [facility] [address] [place] [address] * HEMAGRAM AND DIFFERENTIAL (09/09/2011 14:54 EST) WBC 4.88 4.5 - 13.5 K/cmm [facility] RBC 4.95 4.00 - 6.20 M/cmm [facility] Hemoglobin 14.0 11.5 - 15.5 gm/dl [facility] HCT 40.1 35.0 - 45.0 % [facility] MCV 81 77 - 95 fl [facility] MCH 28.3 pg [facility] MCHC 35.0 gm/dl [facility] PLT 167 156 - 312 K/cmm [facility] RDW-CV 13.0 % [facility] % Neutrophils 54.8 % [facility] % Lymphocytes 36.6 % [facility] % Monocytes 5.9 % [facility] % Eosinophils 2.0 % [facility] % Basophils 0.7 % [facility] ABS Neutrophils 2.68 K/cmm [facility] ABS Lymphs 1.79 K/cmm [facility] ABS Monocytes 0.29 K/cmm [facility] Eosinophils 0.10 K/cmm [facility] Basophils 0.03 K/cmm [facility] Type of Diff: Automated [facility] Blood specimen (specimen) 09/09/2011 14:54 EST 09/09/2011 15:07 EST us Maddy Romero MD PACKAGES & DNA PROBE ORDERABLE S Final Result Performing Organization Address City/State/[facility] Co de Phone Number [facility] [address] [place] [address] * T4 FREE (09/09/2011 14:54 EST) Free T4 1.1 0.8 - 1.5 ng/dL [facility] Blood specimen (specimen) 09/09/2011 14:54 EST 09/09/2011 15:07 EST Maddy Romero MD CHEMISTRY & BLOOD GAS ORDERABL ES Final Result Performing Organization Address City/[facility] Co de Phone Number [facility] [address] [place] [address] * TSH (09/09/2011 14:54 EST) Pathologist [facility] TSH 1.55 0.35 - 5.00 uIU/ml [facility] Blood specimen (specimen) 09/09/2011 14:54 EST 09/09/2011 15:07 EST Maddy Romero MD CHEMISTRY & BLOOD GAS ORDERABL ES Final Result Performing Organization Address [facility] de Phone Number [facility] [address] [place] [address] * PHOSPHORUS (09/09/2011 14:54 EST) [facility] Phosphorus 5.0 3.7 - 5.6 mg/dl [facility] Blood specimen (specimen) 09/09/2011 14:54 EST 09/09/2011 15:07 EST Maddy Romero MD CHEMISTRY & BLOOD GAS ORDERABL ES Final Result Performing Organization Address [facility] de Phone Number [facility] [address] [place] [address] * COMPREHENSIVE METABOLIC PANEL (CMP) (09/09/2011 14:54 EST) [facility] Potassium 4.2 3.6 - 5.2 mEq/L [facility] Sodium 138 136 - 145 mEq/L [facility] Chloride 102 96 - 110 mEq/L [facility] CO2 26 24 - 32 mEq/L [facility] Total Alkaline Phosphatase 264 175 - 420 U/L [facility] Bilirubin, Total <0.5 0.0 - 1.4 mg/dl [facility] AST 29 16 - 46 U/L [facility] ALT 31 10 - 35 U/L [facility] Albumin 4.3 3.0 - 5.5 g/dl [facility] Total Protein 7.1 6.2 - 8.1 g/dl [facility] Creatinine 0.40 0.32 - 0.64 mg/dl [facility] GFR, Calculated Age <18 ml/min/1.7 3m2 [facility] BUN 9 7 - 18 mg/dl [facility] Calcium 9.7 8.8 - 11.1 mg/dl [facility] Calculated Calcium 9.8 8.8 - 11.1 mg/dl [facility] Glucose, Serum 75 70 - 100 mg/dl [facility] Fasting? No [facility] Blood specimen (specimen) 09/09/2011 14:54 EST 09/09/2011 15:07 EST us Maddy Romero MD CHEMISTRY & BLOOD GAS ORDERABL ES Final Result [facility] [address] [place] [address] * BONE AGE STUDIES (09/09/2011 14:33 EST) Anatomical Region Laterality Modality Other 09/09/2011 14:3 3 EST 09/09/2011 15:27 EST Narrative 09/09/2011 15:27 EST Left hand for bone age ?? Sep 09, 2011 02:33:00 PM ?? History: ??783.41-FAILURE TO [id number]-BZX-9-CM short stature Comparison: None. Findings: A single view of the left hand is obtained for bone age. Utilizing the standards of Greulich and Jeri, the patient's radiographic bone age most closely matches that of 7 years 10 months. The patient's chronologic age is 11 years. The standard deviation for a patient of this age is 10.7 months according to the Jasper Foundation Study. Procedure Note 09/09/2011 Left hand for bone age Sep 09, 2011 02:33:00 PM History: 783.41-FAILURE TO [id number]-DEN-4-CM short stature Comparison: None. Findings: A single view of the left hand is obtained for bone age. Utilizing the standards of Greulich and Jeri, the patient's radiographic bone age most closely matches that of 7 years 10 months. The patient's chronologic age is 11 years. The standard deviation for a patient of this age is 10.7 months according to the Jasper Foundation Study. us Maddy Romero MD IMG DIAGNOSTIC IMAGING ORDERAB LES Final Result documented in this encounter Visit Diagnoses Diagnosis FTT (failure to thrive)- Primary Failure to thrive in childhood documented in this encounter Orders Lab Orders Without Results Count Last Ordered D ate First Ordered Date CHROMOSOME ANALYSIS 1 09/09/2011 documented in this encounter Care Teams Deputy Felony Clerk Relationship Specialty Start Date End Date Savanah Kennedy FNP [address] [place] [address] PCP - General 07/03/11 06/16/17 documented as of this encounter
--- OUTSIDE RECORDS SUMMARY | 2024-09-22 09:44 | XMS_ITS | Referral Summary ---
Author Organization [facility] Address [address] [place] [address] Care Team Providers Care Steel Layout Worker Name Role Phone Mohini Pina POSTPARTUM RN Primary Care Provider [phone] Encounters Date Type Department Care Team Description 08/15/2024 0:59 EST - 08/15/2024 1:33 EST Emergency [facility] Emergency Department [address] [place] [address] Austin Carranza MD Contusion of right knee, initial encounter (Primary Dx) Discharge Disposition: Home or Self Care from Last 3 Months Allergies Active Allergy Reactions Criticality Noted Date Comments Other - See Comments 09/09/2011 Cassidy's Drug Multivitamin- Patient's skin turned red from head to toe Medications norgestimate-eth inyl estradiol (ESTARYLLA ORAL) Take by mouth. Active Active Problems Patient Care Coordination No te Formatting of this note migh t be different from the original. Patient has given permission for [facility] to verbally discuss the following information with Benita Campos who has the following relationship to the patient: Parent: Scheduling/Appt/Billing/Payment Information (does not include clinical information unless specifically indicated with separate option) Medical Information including symptoms, diagnosis, medications, test results and treatment plan (does not include Mental Health unless specifically indicated with separate option) Permission remains in effect until the patient elects to revoke it. Problem Noted Date Diagnosed Date Adolescent idiopathic scoliosis of thoracolumbar region 07/29/2017 Vitamin D deficiency 09/10/2011 FTT (failure to thrive) 09/09/2011 Overview (09/25/2011): Petite, Ht & Wt proportional; poor weight gain, reported normal linear growth. Battery of screening labs normal, including IGF1 and BP3, delayed BA (+ FHx of con. delay and beverly SS). 46, XX Recommended to focus on mandi intake. Social History Tobacco Use Types Packs/Day Years Used Date Smoking Tobacco: Never Smokeless Tobacco: Never Alcohol Use Standard Drinks/Week Comments No 0 (1 standard drink = 0.6 oz pur e alcohol) Interpersonal Safety Answer Date Record ed Physically Hurt Never 03/26/2020 Verbally Threaten Not on file 03/26/2020 Comments Unknown Sex and Gender Information Value Date Recorded Sex Assigned at Female 08/15/2024 1:13 EST Legal Sex Female 18:33 EST Gender Identity Female 09/12/2022 14:14 EST Sexual Orientation Not on file Last Filed Vital Signs Vital Sign Reading Time Taken Comments Blood Pressure 140/94 08/15/2024 0101 EST Pulse 97 05/16/20242102 EDT Temperature 36.6 ??C (97.8 ??F) 08/15/2024 0105 EST Respiratory Rate 18 05/16/20242102 EDT Oxygen Saturation 93% 08/15/2024 0101 EST Inhaled Oxygen Concentration - - Weight 48.1 kg (106 lb) 09/26/2022 1300 EST Height 157.5 cm (5' 2) 09/26/2022 1300 EST Body Mass Index 19.39 09/26/2022 1300 EST Plan of Treatment Upcoming Encounters Date Type Department Care Team (Late st Contact Info) Description 11/18/2024 8:50 EDT Office Visit [facility] E[facility] [address] [place] [address] Varinder Parson MD [address] [facility] [address] [place] [address] Procedures Procedure Name Priority Date/Time Associated Diagnosis Comments XR KNEE RIGHT 4 OR MORE VIEWS STAT 08/15/2024 1:17 EST from Last 3 Months Results * XR KNEE RIGHT 4 OR MORE VIEWS (08/15/2024 1:17 EST) Anatomical Region Laterality Modality Lower Extremities Right Computed Radio graphy 08/15/2024 1:10 EST Impressions 08/15/2024 2:16 EST No acute fracture or dislocation. THIS DOCUMENT HAS BEEN ELECTRONICALLY SIGNED BY BHARATH KNIGHT MD FOR ANY QUESTIONS OR CONCERNS REGARDING THIS REPORT PLEASE CALL [facility] AT [phone] Narrative 08/15/2024 2:16 EST PROCEDURE INFORMATION: Exam: XR Right Knee Exam date and time: 08/15/2024 1:10 AM Age: 23 years old Clinical indication: Other: Trauma, pain TECHNIQUE: Imaging protocol: Radiologic exam of the right knee. Views: 4 or more views. COMPARISON: No relevant prior studies available. FINDINGS: Bones/joints: No suspicious osseous lytic or blastic lesion. No discrete or displaced fracture. No joint dislocation. No significant joint effusion. Soft tissues: No focal abnormality. Procedure Note Bharath Knight MD - 08/15/2024 PROCEDURE INFORMATION: Exam: XR Right Knee Exam date and time: 08/15/2024 1:10 AM Age: 23 years old Clinical indication: Other: Trauma, pain TECHNIQUE: Imaging protocol: Radiologic exam of the right knee. Views: 4 or more views. COMPARISON: No relevant prior studies available. FINDINGS: Bones/joints: No suspicious osseous lytic or blastic lesion. No discrete or displaced fracture. No joint dislocation. No significant joint effusion. Soft tissues: No focal abnormality. IMPRESSION No acute fracture or dislocation. THIS DOCUMENT HAS BEEN ELECTRONICALLY SIGNED BY BHARATH KNIGHT MD FOR ANY QUESTIONS OR CONCERNS REGARDING THIS REPORT PLEASE CALL [facility] [phone] Austin Carranza MD IM DIAGNOSTIC IMAGING ORDERABLES Final Result from Last 3 Months Insurance [facility] [address] [facility] [place] [address] [facility] [place] [address] [facility] [place] [address] [facility] [place] [address] [facility] [place] [address] [facility] [place] [address] Care Teams Steel Layout Worker Relationship Specialty Start Date End Date Mohini Pina NP [address] [place] [address] [facility] - General 09/26/22
--- OUTSIDE RECORDS SUMMARY | 2024-09-22 09:44 | XMS_ITS | Encounter Summary ---
Author Organization [facility] Address [address] [place] [address] Care Team Providers Care Enterprise Security Architect Name Role Phone Savanah Kennedy SUSANA Primary Care Provider [phone] Reason for Visit * Reason Onset Date Comments Results 09/11/2011 Encounter Details Date Type Department Care Team (Late Contact Info) Description 09/11/2011 Telephone [facility] Pediatric Endocrinology - [facility] [address], [place] [id number] Maddy Romero MD [address] [address] Results Social History Tobacco Use Types Packs/Day Years Used Date Smoking Tobacco: Never Assessed Comments Unknown Sex and Gender Information Value Date Recorded Sex Assigned at Female 08/15/2024 1:13 EST Legal Sex Female 18:33 EST Gender Identity Female 09/12/2022 14:14 EST Sexual Orientation Not on file documented as of this encounter Miscellaneous Notes * Telephone Encounter - Maddy Olvera MD - 09/11/2011 1010 EST Screening labs normal, karyotype pending. Low vitamin D, recommended to start 1000 IU/day of vitamin D with adequate calcium intake (800-1200mg/day). Nutritional evaluation encouraged, locally or here if desired, parents to call to set appointment. Bone age delayed (mom was late yovani), predicted adult height within genetic potential. documented in this encounter Plan of Treatment Upcoming Encounters Date Type Department Care Team (Late st Contact Info) Description 11/18/2024 8:50 EDT Office Visit [facility] ENT [address] [place] [address] Varinder Parson MD 130 [facility] [address] [place] [address] documented as of this encounter Visit Diagnoses Not on filedocumented in this encounter Care Teams Enterprise Security Architect Relationship Specialty Start Date End Date Savanah Kennedy FNP [address] [place] [address] PCP - General 07/03/11 06/16/17 documented as of this encounter
--- OUTSIDE RECORDS SUMMARY | 2024-09-22 09:44 | XMS_ITS | Clinical Summary ---
Author Organization [facility] Address [address] [place] [address] Care Team Providers Care Material Control Associate Name Role Phone Brennon Pinai Raina HAND FABRIC CUTTER Primary Care Provider [phone] Allergies Active Allergy Reactions Criticality Noted Date Comments Other - See Comments 09/09/2011 [facility] Multivitamin- Patient's skin turned red from head to toe Medications norgestimate-eth inyl estradiol (ESTARYLLA ORAL) Take by mouth. Active Active Problems Patient Care Coordination No te Formatting of this note migh t be different from the original. Patient has given permission for [facility] to verbally discuss the following information [...] XX Recommended to focus on mandi intake. Encounters Date Type Department Care Team Description 08/15/2024 0:59 EST - 08/15/2024 1:33 EST Emergency [facility] Emergency Department [address] [place] [address] Austin Carranza MD Contusion of right knee, initial encounter (Primary Dx) Discharge Disposition: Home or Self Care from Last 3 Months Medical History Medical History Date Comments Bowel disease Family History Medical History Relation Comments Heart Attack Under 50 Maternal Grandfather Hypertension Maternal Grandfather Hypertension Maternal Uncle Short Stature Mother Diabetes Other High Cholesterol Other PGGF Short Stature Other M 2nd aunts leas s than 5 ft High Cholesterol Paternal Grandfather High Cholesterol Paternal Grandmother Thyroid Disease Paternal Grandmother hyperthyrod isim ?, s/p thryodectomy Celiac Disease Neg Hx Crohn's Disease Neg Hx Cystic Fibrosis Neg Hx in Infancy Neg Hx Infertility Neg Hx Inflammatory Bowel Disease Neg Hx SIDS Neg Hx Thyroid Cancer/Nodule Neg Hx Relation Status Comments Father Alive Maternal Grandfather Maternal Uncle Mother Alive Other Paternal Grandfather Paternal Grandmother Sister Alive Social History Tobacco Use Types Packs/Day Years [...] 14:14 EST Sexual Orientation Not on file History Length Weight Head Circum Date/Time Gestation Age D/C Weight APGARs Delivery Method Feeding 19.5 (49.5 cm) 6 lb 12 oz (3.062 kg) 2002 40 wks Vaginal, Spontaneous Obstetrics History Last Filed Vital Signs Vital Sign Reading [...] Info) Description 11/18/2024 8:50 EDT Office Visit [facility] ENT [address] [place] [address] Varinder Parson MD 130 [facility] [address] [place] [address] Health Maintenance Due Date Last Done Comments Hepatitis C Screen 2002 Hepatitis B Vaccine (1 of 3 - 19+ 3-dose series) 08/23 COVID-19 Vaccine ( season) 2024 Procedures Procedure Name Priority Date/Time Associated Diagnosis [...] REGARDING THIS REPORT PLEASE CALL [facility] AT [phone] Narrative 08/15/2024 2:16 EST PROCEDURE INFORMATION: Exam: [...] CONCERNS REGARDING THIS REPORT PLEASE CALL [facility] [phone] Austin Carranza MD IM DIAGNOSTIC IMAGING ORDERABLES Final Result from Last 3 Mon[place] [address] [facility] Care Teams Material Control Associate Relationship Specialty Start Date End Date Mohini Pina NP [address] [place] [address] PCP - General 09/26/22
--- OUTSIDE RECORDS SUMMARY | 2024-09-22 09:44 | XMS_ITS | Encounter Summary ---
Author Organization [facility] Address [address] [place] [address] Care Team Providers Care Neurology Manager Name Role Phone Savanah Kennedy SUSANA Primary Care Provider [phone] Unknown, Provider Primary Care Provider Unava ilable Encounter Details Date Type Department Care Team (Late st Contact Info) Description 04/18/2017 Historical Results Only [facility] - Main [place] [address] [place], [place] [phone] Lon Martin MD [address] [place] [address] Social History Tobacco Use Types Packs/Day Years [...] Info) Description 11/18/2024 8:50 EDT Office Visit [facility] ENT [address] [place] [address] Varinder Parson MD [address] [place] [address] [address] documented as of this encounter Procedures Procedure Name Priority Date/Time Associated Diagnosis Comments COMPLETE BLOOD COUNT WITH DIFFERENTIAL (AUTO) Routine 04/18/2017 20:00 EDT LIPASE Routine 04/18/2017 20:00 EDT COMPREHENSIVE METABOLIC PANEL (CMP) Routine 04/18/2017 20:00 EDT documented in this encounter Results * LIPASE (04/18/2017 20:00 EDT) Lipase 107 73 - 393 U/L 04/18/2017 20:25 EDT [facility] 04/18/2017 20:0 0 EDT 04/18/2017 20:02 EDT Narrative [facility] - 04/18/2017 20:25 EDT Does PT Have a Latex Allergy? UNKNOWN us Lon Martin MD CHEMISTRY & BLOOD GAS ORDERABLES Final Result [facility] * (ABNORMAL) COMPREHENSIVE METABOLIC PANEL (CMP) (04/18/2017 20:00 EDT) Pathologist [facility] Albumin % 4.2 3.4 - 5.0 g/dL [facility]/18[facility]2017 [facility] ALKALINE [facility]OSPHATASE - [facility] 155(H) 41 - 126 U/L 04/18/2017 20:25 [facility] BILIRUBIN TOTAL 0.2 0.0 - 1.0 mg/dL 04/18/2017 20:25 [facility] BUN - [facility] 7 7 - 18 mg/dL 04/18/2017 20:25 [facility] CALCIUM - [facility] 9.0 8.5 - 10.1 mg/dL 04/18/2017 20:25 [facility] Chloride 103 98 - 107 mEq/L 04/18/2017 20:25 [facility] CO2 Total 29 21 - 32 mEq/L 04/18/2017 20:25 [facility] CREATININE 0.55 0.5 - 1.3 mg/dL 04/18/2017 20:25 [facility] Anion Gap 7 5 - 15 04/18/2017 20:25 EDT [facility] GLUCOSE - [facility] 95 70 - 100 mg/dL 04/18/2017 20:25 EDT [facility] Potassium 4.0 3.5 - 5.0 mEq/L 04/18/2017 20:25 EDT [facility] Sodium 139 135 - 145 mEq/L 04/18/2017 20:25 EDT [facility] TOTAL PROTEIN - [facility] 7.3 6.4 - 8.2 gm/dl 04/18/2017 20:25 EDT [facility] SGOT/AST - [facility] 22 10 - 37 U/L 04/18/2017 20:25 [facility] SGPT/ALT - [facility] 23 12 - 78 U/L 04/18/2017 20:25 [facility] 04/18/2017 20:0 0 EDT 04/18/2017 20:02 EDT Narrative [facility] - 04/18/2017 20:25 EDT Does PT Have a Latex Allergy? UNKNOWN us Lon Martin MD CHEMISTRY & BLOOD GAS ORDERABLES Final Result [facility] * COMPLETE BLOOD COUNT WITH DIFFERENTIAL (AUTO) (04/18/2017 20:00 EDT) ABSOLUTE NEUTROPHIL COUN - [facility] 4.78 1.7 - 7.0 10e3/ul 04/18/2017 20:07 EDT [facility] BASO # - [facility] 0.02 0.0 - 0.3 10e3/uL 04/18/2017 20:07 EDT [facility] BASO % - [facility] 0 0 - 2 % 04/18/2017 20:07 EDT [facility] EOS # - [facility] 0.16 0.05 - 0.5 10e3/uL 04/18/2017 [facility] EOS % - [facility] 2 0 - 5 % 04/18/2017 20:07 EDT [facility] GRAN % - [facility] 65 40 - 80 % 04/18/2017 20:07 [facility] HEMATOCRIT - [facility] 43.1 34.0 - 47.0 % 04/18/2017 20:07 [facility] HEMOGLOBIN - [facility] 14.3 11.2 - 15.7 g/dl 04/18/2017 20:07 [facility] IG# - [facility] 0.01 0 - 0.07 10e3/uL 04/18/2017 20:07 [facility] IG% - [facility] 0.1 0 - 0.9 % 04/18/2017 20:07 [facility] LYMPH # - [facility] 1.81 0.9 - 2.9 10e3/uL 04/18/2017 20:07 [facility] LYMPH% - [facility] 25 20 - 40 % 04/18/2017 20:07 [facility] MEAN CORPUSCULAR HGB - [facility] 28.2 26 - 34 pg 04/18/2017 20:07 [facility] MEAN CORPUSCULAR HGB CONC - [facility] 33.2 31 - 36 g/dL 04/18/2017 20:07 [facility] MEAN CELL VOLUME - [facility] 85.0 77 - 100 fl 04/18/2017 20:07 [facility] MONO # - [facility] 0.55 0.3 - 0.9 10e3/uL 04/18/2017 20:07 [facility] MONO% - [facility] 8 0 - 12 % 04/18/2017 20:07 [facility] PLATELET COUNT 195 150 - 400 10e3/ul 04/18/2017 20:07 [facility] RED BLOOD COUNT - [facility] 5.07 3.8 - 5.2 10e6/ul 04/18/2017 20:07 [facility] RED CELL DISTRI WIDTH - [facility] 13.5 11.8 - 15.6 % 04/18/2017 20:07 [facility] WHITE BLOOD COUNT - [facility] 7.3 3.5 - 10.5 10e3/ul 04/18/2017 20:07 [facility] 04/18/2017 20:0 0 EDT 04/18/2017 20:02 EDT Narrative [facility] - 04/18/2017 20:07 EDT Does PT Have a Latex Allergy? UNKNOWN us Lon Martin MD HEMATOLOGY & PF4 ORDERABLES Leah sin Result [facility] documented in this encounter Visit Diagnoses Not on filedocumented in this encounter Care Teams Neurology Manager Relationship Specialty Start Date End Date Savanah Kennedy FNP [address] [place], [place] [id number] PCP - General 07/03/11 06/16/17 Unknown, Provider, [address] [place] [address] PCP - General 06/17/17 09/25/22 documented as of this encounter
--- OUTSIDE RECORDS SUMMARY | 2024-09-22 09:44 | XMS_ITS | Encounter Summary ---
Author Organization [facility] Address [address] [place] [address] Care Team Providers Care Remote Encoding Operations Supervisor Name Role Phone Savanah Kennedy SUSANA Primary Care Provider [phone] Reason for Visit * Reason Onset Date Comments Appointment Related 07/03/2011 Encounter Details Date Type Department Care Team (Korey Contact Info) Description 07/03/2011 Telephone [facility] Pediatric Endocrinology - [address] [id number] [place] [address] Appointment Related Social History Tobacco Use Types Packs/Day Years Used Date Smoking Tobacco: Never Assessed Comments Unknown Sex and Gender Information Value Date Recorded Sex Assigned at Female 08/15/2024 1:13 EST Legal Sex Female 18:33 EST Gender Identity Female 09/12/2022 14:14 EST Sexual Orientation Not on file documented as of this encounter Miscellaneous Notes * Telephone Encounter - Olimpia Alexander - 07/03/2011 1323 EST Updated information in IDX-reason for visit is poor weight gain for over 1 year. Per PCP , will faxnotes, growth chart, results, etc.. documented in this encounter Plan of Treatment Upcoming Encounters Date Type Department Care Team (Korey howell Contact Info) Description 11/18/2024 8:[address] [facility] ENT [address] [place] [address] Varinder Parson MD 130 [facility] [address] [place] [address] documented as of this encounter Visit Diagnoses Not on filedocumented in this encounter Care Teams Remote Encoding Operations Supervisor Relationship Specialty Start Date End Date Savanah Kennedy FNP [address] [place] [address] PCP - General 07/03/11 06/16/17 documented as of this encounter
--- OUTSIDE RECORDS SUMMARY | 2024-09-22 09:44 | XMS_ITS | Encounter Summary ---
Author Organization [facility] Address [address] [place] [address] Care Team Providers Care Salesforce Business Analyst Name Role Phone Savanah Kennedy Primary Care Provider [phone] Encounter Details Date Type Department Care Team (Latest Contact Info) Description 06/13/2017 11:23 EDT - 06/13/2017 23:59 EDT Hospital Encounter [address] [address] Unknown, Provider, Discharge Disposition: Home or Self Care Social History Tobacco Use Types Packs/Day Years Used Date Smoking Tobacco: Never Assessed Comments Unknown Sex and Gender Information Value Date Recorded Sex Assigned at Female 08/15/2024 1:13 EST Legal Sex Female 18:33 EST Gender Identity Female 09/12/2022 14:14 EST Sexual Orientation Not on file documented as of this encounter Discharge Disposition Disposition Code Departure Means Destination Home or Self [facility] documented in this encounter Plan of Treatment Upcoming Encounters Date Type Department Care Team (Late st Contact Info) Description 11/18/2024 8:50 EDT Office Visit [facility] ENT [address] [place] [address] Varinder Parson MD 130 [facility] [address] [place] [address] documented as of this encounter Visit Diagnoses Not on filedocumented in this encounter Care Teams Salesforce Business Analyst Relationship Specialty Start Date End Date Savanah Kennedy FNP [address] [place] [address] PCP - General 07/03/11 06/16/17 documented as of this encounter
--- OUTSIDE RECORDS SUMMARY | 2024-09-22 09:44 | XMS_ITS | Encounter Summary ---
Author Organization [facility] Address [address] [place] [address] Care Team Providers Care Inspector Machine Cut Glass Name Role Phone Unknown, Provider MD Primary Care Provider Unava ilable Reason for Visit * Reason Onset Date Comments Appointment Related 08/05/2022 Encounter Details Date Type Department Care Team (Late st Contact Info) Description 08/05/2022 Telephone [facility] [place] ENT [address] [place] [address] Varinder Parson MD [address] [place] [address] [address] [place] [address] Appointment Related Social History Tobacco Use Types [...] encounter Miscellaneous Notes * Telephone Encounter - Mariam Barnes - 08/20/2022 0958 EST 3rd return call to pt No answer/ lmtcb Referral closed pcp office notified * Telephone Encounter - Mariam Barnes - 08/09/2022 0945 EST ret'd call to pt after 2 as she requested, I called at 2:40 on 08/08 - had to leave another msg * Telephone Encounter - Mariam Barnes - 08/06/2022 1130 EST lmtcb * Telephone Encounter - Mandy William - 08/05/2022 1210 EST Patient left a message on the voicemail asking to speak to Mariam to schedule an appointment to haveher tonsils removed. Please call her at [phone] documented in this encounter Plan of Treatment Upcoming Encounters Date Type Department Care Team (Late st Contact Info) Description 11/18/2024 8:50 EDT Office Visit [facility] ENT [address] [place] [address] Varinder Parson MD 130 [facility] [address] [place] [address] documented as of this encounter Visit Diagnoses Not on filedocumented in this encounter Care Teams Inspector Machine Cut Glass Relationship Specialty Start Date End Date Unknown, Provider, PCP - General 06/17/17 09/25/22 documented as of this encounter
--- OUTSIDE RECORDS SUMMARY | 2024-09-22 09:44 | XMS_ITS | Encounter Summary ---
Author Organization [facility] Address [address] [place] [address] Care Team Providers Care Peritoneal Dialysis Registered Nurse Name Role Phone Savanah Kennedy SUSANA Primary Care Provider [phone] Unknown, Provider Primary Care Provider Unava ilable Encounter Details Date Type Department Care Team (Late st Contact Info) Description 06/13/2017 Historical Results Only [facility] Radiology Results [address] [place], [place] [address] Emilie Miguel MD [address] [facility] [address] [place] [address] Social History Tobacco Use Types Packs/Day Years [...] Info) Description 11/18/2024 8:50 EDT Office Visit [facility] ENT [address] [place], [place] [phone] Varinder Parson MD 130 [facility] [address] [place] [phone] documented as of this encounter Procedures Procedure Name Priority Date/Time Associated Diagnosis Comments XR SCOLIOSIS SERIES 2 VIEWS 06/13/2017 16:50 EDT documented in this encounter Results * XR SCOLIOSIS SERIES 2 VIEWS (06/13/2017 16:50 EDT) Anatomical Region Laterality Modality Spine Other 06/13/2017 16:5 0 EDT Narrative 06/13/2017 16:54 EDT ? EXAM: RADIOLOGY/SCOLIOSIS SERIES 2 VIEWS ??EX. D/ (1612) ? CLINICAL INFORMATION: ? 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 THORACOLUMBAR CONVEX TO RIGHT ? INDICATION: M41.125 ADOLESCENT IDIOPATHIC SCOLIOSIS OF, THORACOLUMBAR ? REGION, NOTABLE SCOLIOSIS , THORACOLUMBAR CONVEX TO RIGHT ADOLESCENT ? IDIOPATHIC SCOLIOSIS ? TECHNIQUE: ??2 views of the entire spine. Standing AP and lateral ? views of the thoracolumbar spine. ? COMPARISON: None. ? FINDINGS: ? There is S-shaped scoliotic curvature of the thoracolumbar spine. ? Convex rightward curvature centered at the T9 level. Using the ? superior cortices of the T7 and T11 pedicles as reference, there is ? 21 degrees of curvature. ? Convex leftward curvature centered at the L2-L3 level. Using the ? superior cortices of the pedicles of the T12 and L4 vertebral bodies ? as reference, there is 17 degrees of curvature. ? No vertebral body segmentation abnormality is detected. ? The lungs are clear. The bowel gas pattern is nonobstructive. ? IMPRESSION: ? S-shaped scoliotic curvature of the thoracolumbar spine. ? REPORT SIGNED IN OTHER VENDOR SYSTEM 06/13/2017 ?Reported By: Armando Nagel MD ? CC: ? Transcribed Date/Time: 06/13/2017 (331) ? It Network Architect: ? Printed Date/Time: 02/09/2019 (2850) ? PAGE 1 ? Signed Report ? Procedure Note Armando Nagel E - 06/30/2019 EXAM: RADIOLOGY/SCOLIOSIS SERIES 2 VIEWS EX. D/ (1612) CLINICAL INFORMATION: M41.125 ADOLESCENT IDIOPATHIC SCOLIOSIS OF THORACOLUMBAR REGION, NOTABLE SCOLIOSIS THORACOLUMBAR CONVEX TO RIGHT INDICATION: M41.125 ADOLESCENT IDIOPATHIC SCOLIOSIS OF,THORACOLUMBAR REGION, NOTABLE SCOLIOSIS , THORACOLUMBAR CONVEX TO RIGHTADOLESCENT IDIOPATHIC SCOLIOSIS TECHNIQUE: 2 views of the entire spine. Standing AP and lateral views of the thoracolumbar spine. COMPARISON: None. FINDINGS: There is S-shaped scoliotic curvature of the thoracolumbar spine. Convex rightward curvature centered at the T9 level. Using the superior cortices of the T7 and T11 pedicles as reference, there is 21 degrees of curvature. Convex leftward curvature centered at the L2-L3 level. Using the superior cortices of the pedicles of the T12 and L4 vertebralbodies as reference, there is 17 degrees of curvature. No vertebral body segmentation abnormality is detected. The lungs are clear. The bowel gas pattern is nonobstructive. IMPRESSION: S-shaped scoliotic curvature of the thoracolumbar spine. REPORT SIGNED IN OTHER VENDOR SYSTEM 06/13/2017 Reported By: Armando Nagel MD CC: Transcribed Date/Time: 06/13/2017 (9819) It Network Architect: Printed Date/Time: 02/09/2019 (2520) PAGE 1 Signed Report us Emilie Miguel MD IMG DIAGNOSTIC IMAGING ORDERABLE S Final Result documented in this encounter Visit Diagnoses Not on filedocumented in this encounter Care Teams Peritoneal Dialysis Registered Nurse Relationship Specialty Start Date End Date Savanah Kennedy FNP [address] [place] [address] PCP - General 07/03/11 06/16/17 Unknown, Provider, [address] [place] [address] PCP - General 06/17/17 09/25/22 documented as of this encounter
--- OUTSIDE RECORDS SUMMARY | 2024-09-22 09:44 | XMS_ITS | Encounter Summary ---
Author Organization [facility] Address [address] [place] [address] Care Team Providers Care Retail Salesworker Name Role Phone Unknown, Provider Primary Care Provider Mohini Gorman NP Primary Care Provider [phone] Encounter Details Date Type Department Care Team (Late st Contact Info) Description 05/22/2019 Results Only Imaging [facility] Radiology Results [address] [place] [address] Jayna Lopez PA-C [address] [place] [id number] Social History Tobacco Use Types Packs/Day Years Used Date Smoking Tobacco: Never Smokeless Tobacco: Never Alcohol Use Standard Drinks/Week Comments No 0 (1 standard drink = 0.6 oz pur e alcohol) Comments Unknown Sex and Gender Information Value Date Recorded Sex Assigned at Female 08/15/2024 1:13 EST Legal Sex Female 18:33 EST Gender Identity Female 09/12/2022 14:14 EST Sexual Orientation Not on file documented as of this encounter Plan of Treatment Upcoming Encounters Date Type Department Care Team (Late st Contact Info) Description 11/18/2024 8:50 EDT Office Visit [facility] ENT [address] [place], [place] [id number] Varinder Parson MD [address] [facility] [address] [place] [address] (work) documented as of this encounter Procedures Procedure Name Priority Date/Time Associated Diagnosis Comments XR ABDOMEN 1 VIEW 05/22/2019 17: 56 EDT documented in this encounter Results * XR ABDOMEN 1 VIEW (05/22/2019 17:56 EDT) Anatomical Region Laterality Modality Body Other 05/22/2019 17:5 6 EDT Narrative 05/22/2019 17:56 EDT ? EXAM: RADIOLOGY EXPRESS CARE/EXP CARE ABD EX. D/ (1733) ? CLINICAL INFORMATION: ? GENERALIZED ABDOMINAL PAIN, R10.84 ? PROCEDURE INFORMATION: ? Exam: XR Abdomen, 1 View ? Exam date and time: 05/22/2019 17:30 ? Clinical history: 18 years old, female; Abdominal pain; Generalized; ? Additional info: Generalized abdominal pain, r10.84 ? TECHNIQUE: ? Imaging protocol: XR of the abdomen. ? Views: Frontal supine view of the abdomen. 1 View. ? COMPARISON: ? No relevant prior studies available. ? FINDINGS: ? Gastrointestinal tract: Nobstructive bowel gas pattern. ? Organs: No stones project over the renal shadows. ? Bones/joints: No acute fracture or subluxation. Mild lumbar ? levoscoliosis. Leftward curvature of the lumbar spine, approximately ? 11 degrees apex at L3. ? IMPRESSION: ? 1. No acute findings. ? 2. Nobstructive bowel gas pattern. ? 3. Mild lumbar levoscoliosis. ? REPORT SIGNED IN OTHER VENDOR SYSTEM 05/22/2019 ?Reported By: Christiane Watson MD ? CC: Jayna Lopez PA-C ? Transcribed Date/Time: 05/22/2019 (6668) ? Cafeteria Aide: ? Printed Date/Time: 05/22/2019 (4113) ? PAGE 1 ? Signed Report ? Procedure Note Christiane Watson MD - 07/03/2019 EXAM: RADIOLOGY EXPRESS CARE/EXP CARE ABD EX. D/ (1733) CLINICAL INFORMATION: GENERALIZED ABDOMINAL PAIN, R10.84 PROCEDURE INFORMATION: Exam: XR Abdomen, 1 View Exam date and time: 05/22/2019 17:30 Clinical history: 18 years old, female; Abdominal pain; Generalized; Additional info: Generalized abdominal pain, r10.84 TECHNIQUE: Imaging protocol: XR of the abdomen. Views: Frontal supine view of the abdomen. 1 View. COMPARISON: No relevant prior studies available. FINDINGS: Gastrointestinal tract: Nobstructive bowel gas pattern. Organs: No stones project over the renal shadows. Bones/joints: No acute fracture or subluxation. Mild lumbar levoscoliosis. Leftward curvature of the lumbar spine, approximately 11 degrees apex at L3. IMPRESSION: 1. No acute findings. 2. Nobstructive bowel gas pattern. 3. Mild lumbar levoscoliosis. REPORT SIGNED IN OTHER VENDOR SYSTEM 05/22/2019 Reported By: Christiane Watson MD CC: Jayna Lopez PA-C Transcribed Date/Time: 05/22/2019 (195) Cafeteria Aide: Printed Date/Time: 05/22/2019 (1983) PAGE 1 Signed Report Jayna Lopez PA-C IMG DIAGNOSTIC IMAGING ORDERABLES Final Result documented in this encounter Visit Diagnoses Not on filedocumented in this encounter Care Teams Retail Salesworker Relationship Specialty Start Date End Date Unknown, Provider, PCP - General 06/17/17 09/25/22 Mohini Pina, SHAYLA [address] [place] [address] PCP - General 09/26/22 documented as of this encounter
--- OUTSIDE RECORDS SUMMARY | 2024-09-22 09:44 | XMS_ITS | Encounter Summary ---
Author Organization [facility] Address [address] [place] [address] Care Team Providers Care Industrial Custodian Name Role Phone Unknown, Provider Primary Care Provider Mohini Gorman ENVIRONMENTAL ENGINEERING AIDE Primary Care Provider [phone] Encounter Details Date Type Department Care Team (Late st Contact Info) Description 03/14/2020 Lab Requisition [facility] Pathology & Laboratory Medicine - [facility] [address], [place] [id number] Outr Resulting Lab, Provider Social History Tobacco Use Types Packs/Day Years [...] Info) Description 11/18/2024 8:50 EDT Office Visit [facility] ENT [address] [place] [address] Varinder Parson MD [address] [facility] [address] [place] [address] documented as of this encounter Procedures Procedure Name Priority Date/Time Associated Diagnosis Comments CHLAMYDIA/N. GONORRHOEAE AMPLIFIED NUCLEIC ACID Routine 03/13/2020 10:15 EDT documented in this encounter Results * CHLAMYDIA/N. GONORRHOEAE AMPLIFIED RNA (03/13/2020 10:15 EDT) Neisseria gonorrhoeae Result Negative Negative 03/15/2020 14:24 EDT [facility] Chlamydia trachomatis Result Negative Negative 03/15/2020 14:24 EDT [facility] Swab ENTIRE VAGINA / Unknown 03/13/2020 10:15 EDT 03/14/2020 18:44 EDT us Provider Outr Resulting Lab MICROBIOLOGY - GENER AL ORDERABLES Final Result [facility] [address] [place] [address] documented in this encounter Visit Diagnoses Not on filedocumented in this encounter Care Teams Industrial Custodian Relationship Specialty Start Date End Date Unknown, Provider, PCP - General 06/17/17 09/25/22 Mohini Pina, ENVIRONMENTAL ENGINEERING AIDE [address] [place] [address] PCP - General 09/26/22 documented as of this encounter
--- OUTSIDE RECORDS SUMMARY | 2024-09-22 09:44 | XMS_ITS | Encounter Summary ---
Author Organization [facility] Address [address] [place] [address] Care Team Providers Care Newborn Hearing Screener Name Role Phone Mohini Pina SOCIAL STUDIES TEACHER Primary Care Provider [phone] Encounter Details Date Type Department Care Team (Latest Contact Info) Description 05/16/2024 Travel Social History Tobacco Use Types Packs/Day Years [...] Info) Description 11/18/2024 8:50 EDT Office Visit [facility] ENT [address] [place] [address] Varinder Parson MD [address] [facility] [address] [place] [address] documented as of this encounter Visit Diagnoses Not on filedocumented in this encounter Care Teams Newborn Hearing Screener Relationship Specialty Start Date End Date Mohini Pina, SOCIAL STUDIES TEACHER [address] [place] [address] PCP - General 09/26/22 documented as of this encounter
--- OUTSIDE RECORDS SUMMARY | 2024-09-22 09:44 | XMS_ITS | Encounter Summary ---
Author Organization [facility] Address [address] [place] [address] Care Team Providers Care Deputy General Counsel Name Role Phone Mohini Pina DIRECTOR WORKERS COMPENSATION Primary Care Provider [phone] Reason for Visit * Reason Comments Knee Pain Pt arrives with R kn ee in brace, able to weight bear and ambulate well. States she broke her R knee cap several years ago and recently knee has been acting up. 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 No otc meds today. Encounter Details Date Type Department Care Team (Late st Contact Info) Description 08/15/2024 0:59 EST - 08/15/2024 1:33 EST Emergency [facility] Emergency Department [address] [place] [id number] Austin Carranza MD [address] [place] [address] Contusion of right knee, initial encounter (Primary Dx) Discharge Disposition: Home or Self Care Social [...] Blood Pressure 140/94 08/15/2024 0101 EST Pulse - - Temperature 36.6 ??C (97.8 ??F) 08/15/2024 0105 EST Respiratory Rate - - Oxygen Saturation 93% 08/15/2024 0101 EST Inhaled Oxygen Concentration - - Weight - - Height - - Body Mass Index - - documented in this encounter Discharge Instructions * Discharge Instructions* Austin Carranza MD - 08/15/2024 1:30 EST Knee splint and crutches for comfort. Follow-up with orthopedic surgery should symptoms persist. Return for increasing pain, redness, swelling, worsening symptoms or any other concerns. * Attachments The following attachments cannot be sent through Care Everywhere. * Knee Pain or Injury (Polish) documented in this encounter Medications at Time of Discharge norgestimate-ethin yl estradiol (ESTARYLLA ORAL) Take by mouth. documented as of this encounter Discharge Disposition Disposition Code Departure Means Destination Comment s Home or Self Snf documented in this encounter ED Notes * Austin Carranza MD - 08/15/2024 0057 EST Emergency Department Visit Medical Decision Making 23-year-old female with a history of tibial plateau fracture presents with complaint of right knee pain after hitting it against a cupboard prior to arrival. No swelling. No redness. Patient states she typically feels very painful Concern for knee contusion, sprain, fracture Imaging (independent interpretation) of the X-ray: No acute fracture or dislocation appreciated. Nojoint effusion. Patient has a brace from prior injury. Crutches provided this patient has worsening pain with ambulation. Advised patient to follow-up with orthopedist and physical therapy. Ibuprofen and Tylenol recommended for discomfort. Patient discharged home. Return precaution provided. Medical Decision Making Problems Addressed: Contusion of right knee, initial encounter: acute illness or injury Amount and/or Complexity of Data Reviewed Radiology: ordered and independent interpretation performed. Decision-making details documented in ED Course. Final diagnoses: Contusion of right knee, initial encounter Disposition: Discharged Chief complaint: Right HPI Vandana Perez is a 23 y.o. patient with a history of tibial plateau fracture presents with complaint of right knee pain after hitting it against a cupboard prior to arrival. No swelling. No redness. Patient states she typically feels very painful. History was provided by: Patient Records reviewed include: Chart reviewed Patient's pertinent PMH, FH, SH were reviewed and edited as necessary. Nursing notes reviewed. A medical screening exam was performed. Physical Exam BP (!) 140/94 Temp 36.6 ??C (97.8 ??F) (Oral) SpO2 93% Physical Exam Vitals and nursing note reviewed. Constitutional: Appearance: Normal appearance. HENT: Head: Normocephalic and atraumatic. Right Ear: External ear normal. Left Ear: External ear normal. Mouth/Throat: Mouth: Mucous membranes are moist. Eyes: Extraocular Movements: Extraocular movements intact. Conjunctiva/sclera: Conjunctivae normal. Pupils: Pupils are equal, round, and reactive to light. Pulmonary: Effort: Pulmonary effort is normal. Musculoskeletal: General: Tenderness present. Normal range of motion. Cervical back: Normal range of motion. Comments: Pain with palpation on distal aspect of right patella. No significant swelling. No hematoma. Skin: General: Skin is warm and dry. Neurological: General: No focal deficit present. Mental Status: She is alert and oriented to person, place, and time. Psychiatric: Mood and Affect: Mood normal. Behavior: Behavior normal. Procedures Procedures documented in this encounter Plan of Treatment Upcoming Encounters Date Type Department Care Team (Late st Contact Info) Description 11/18/2024 8:50 EDT Office Visit [facility] ENT [address] [place] [address] Varinder Parson MD [address] [place] [address] [address] [place] [address] documented as of this encounter Procedures Procedure Name Priority Date/Time Associated Diagnosis Comments XR KNEE RIGHT 4 OR MORE VIEWS STAT 08/15/2024 1:17 EST documented in this encounter Results * XR KNEE RIGHT 4 OR MORE VIEWS (08/15/2024 1:17 EST) Anatomical Region Laterality Modality Lower Extremities Right Computed Radio graphy 08/15/2024 1:10 EST Impressions 08/15/2024 2:16 EST No acute fracture or dislocation. THIS DOCUMENT HAS BEEN ELECTRONICALLY SIGNED BY BHARATH KNIGHT MD FOR ANY QUESTIONS OR CONCERNS REGARDING THIS REPORT PLEASE CALL [facility] AT [phone] Narrative 08/15/2024 2:16 EST PROCEDURE INFORMATION: Exam: [...] CONCERNS REGARDING THIS REPORT PLEASE CALL [facility] [phone] Austin Carranza MD IM DIAGNOSTIC IMAGING ORDERABLES Final Result documented in this encounter Visit Diagnoses Diagnosis Contusion of right knee, initial encounter- Primary documented in this encounter Care Teams Deputy General Counsel Relationship Specialty Start Date End Date Mohini Pina NP [address] [place] [id number] PCP - General 09/26/22 documented as of this encounter
--- OUTSIDE RECORDS SUMMARY | 2024-09-22 09:44 | XMS_ITS | Encounter Summary ---
Author Organization [facility] Address [address] [place] [address] Care Team Providers Care Passenger Service Supervisor Name Role Phone Brennon Pinai Raina POULTRY FEED SUPERVISOR Primary Care Provider [phone] Reason for Visit * Reason Comments Urinary Tract Infection PT arrives with reports of UTI symptoms , burning, urgency, and frequency with some blood in her urine. PT reports recent new partner and unprotected sex. Has history of UTI. Would also like STD/STI testing. Encounter Details Date Type Department Care Team (Late st Contact Info) Description 05/16/2024 21:01 EDT - 05/16/2024 23:05 EDT Emergency [facility] Emergency Department [address] [place] [address] Rich Buchanan MD [address] [place] [address] UTI (urinary tract infection), uncomplicated (Primary Dx) Discharge Disposition: Home or Self [...] Sign Reading Time Taken Comments Blood Pressure 162/94 05/16/20242102 EDT Pulse 97 05/16/20242102 EDT Temperature 36.9 ??C (98.4 ??F) 05/16/20242102 EDT Respiratory Rate 18 05/16/20242102 EDT Oxygen Saturation 100% 05/16/20242102 EDT Inhaled Oxygen Concentration - - Weight - - Height - - Body Mass Index - - documented in this encounter Discharge Instructions * Discharge Instructions* Rich Buchanan MD - 05/16/2024 22:51 EDT You were seen today for urinary tract infection. You were started on antibiotic Your testing for chlamydia and GC were negative. Recommend barrier method always Starting tomorrow you will take this antibiotic twice a day for 5 days You been given Pyridium to take twice a day which will decrease the stinging sensation when you urinate, it will turn your urine orange. Make sure you take plenty of fluids. If you develop fevers or chills, or nausea vomiting and inability to take the medications for the urinary infection you will need to be reevaluated. * Attachments The following attachments cannot be sent through Care Everywhere. * UTI (Urinary Tract Infection): Female ([place]) documented in this encounter Medications at Time of Discharge norgestimate-ethi nyl estradiol (ESTARYLLA ORAL) Take by mouth. cefpodoxime (VANTIN) 200 mg tablet Take 1 Tablet by mouth every 12 hours for 5 days. 10 Tablet 05/16/2024 05/21/2024 documented as of this encounter Ordered Prescriptions Prescription Sig Dispense Quantity Refills Last Filled Start Date End Date cefpodoxime (VANTIN) 200 mg tablet Take 1 Tablet by mouth every 12 hours for 5 days. 10 Tablet 05/16/2024 05/21/2024 documented in this encounter Discharge Disposition Disposition Code Departure Means Destination Comment s Home or Self Halfway documented in this encounter ED Notes * Rich Buchanan MD - 05/16/2024 2100 EDT Emergency Department Visit 23-year-old with dysuria and frequency, questionable hematuria, sounds like cystitis, no systemic illness or flank pain to suggest pyelonephritis. Possible STIs considered as well given history of unprotected intercourse with new partner. No history of vaginal discharge or lower abdominal pain. Doubt TOA. On exam patient well-appearing nontoxic, minimal suprapubic tenderness no CVA tenderness, no signs of peritoneal irritation. Right suggestive of infection. STI probe is negative. Will try cefpodoxime/Pyridium for UTI Medical Decision Making Medical Decision Making Problems Addressed: UTI (urinary tract infection), uncomplicated: complicated acute illness or injury Amount and/or Complexity of Data Reviewed Labs: ordered. Risk Prescription drug management. Final diagnoses: UTI (urinary tract infection), uncomplicated Disposition: Discharged Chief complaint: UTI symptoms GUEVARA Perez is a 23 y.o. female with no significant past medical history who presents to theED for dysuria, urinary frequency, noted a small amount of blood in her urine. Mild suprapubic pain, no flank or back pain, no fevers chills, no no nausea or vomiting. Patient also concerned about possible STI given new partner and no barrier method Denies vaginal discharge or lower abdominal pain. Patient does not think she is History was provided by: Patient Records reviewed include: Medication list allergies Patient's pertinent PMH, FH, SH were reviewed and edited as necessary. Nursing notes reviewed. A medical screening exam was performed. Physical Exam BP (!) 162/94 Pulse 97 Temp 36.9 ??C (98.4 ??F) Resp 18 SpO2 100% Physical Exam Nurses notes and vital signs were reviewed The medical screening exam was performed GEN: Well-appearing, awake and alert, nontoxic HEENT: NC/AT, EOMI, external ears normal, nares clear, OP with MMM Neck: Supple, nontender full range of motion Chest: NT, CTA B CAR:RRR, no murmur ABD: Nondistended, soft, NT Back: No CVAT EXT: no C/C/E, no calf tenderness Neuro:A/O x 3, no focal weakness, moves all extremities x4, normal gait observed Procedures Procedures documented in this encounter Plan of Treatment Upcoming Encounters Date Type Department Care Team (Late st Contact Info) Description 11/18/2024 8:50 EDT Office Visit [facility] ENT [address] [place] [address] Varinder Parson MD [address] [facility] [address] [place] [address] documented as of this encounter Procedures Procedure Name Priority Date/Time Associated Diagnosis Comments URINE CHEMICAL (DIP) & SEDIMENT (MICRO) WITH REFLEX TO CULTURE Routine 05/16/2024 21:18 EDT CHLAMYDIA/N. GONORRHOEAE AMPLIFIED NUCLEIC ACID STAT 05/16/2024 21:18 EDT TEST, URINE STAT Add-on 05/16/2024 21:18 EDT BACTERIAL CULTURE, URINE Today 05/16/2024 21:18 EDT documented in this encounter Results * (ABNORMAL) BACTERIAL CULTURE, URINE (05/16/2024 21:18 EDT) Organism ID Greater than 100,000 CFU/ml Escherichia coli(A) VITEK SUSCEPTIBILITY 05/18/2024 7:28 EDT [facility] Comment: Cefazolin susceptibility results can be used to predict susceptibility results for the following oral cephalosporins when used for therapy of uncomplicated UTI's due to E.coli, K.pneumoniae and P.mirabilis: cefaclor, cefdinir, cefpodoxime, cefprozil, cefuroxime, cephalexin and loracarbef. ??Please note that only cefdinir, cefpodoxime, cefuroxime and cephalexin are on the [facility] inpatient formulary. Urine URINE SPECIMEN OBTAINED BY CLEAN CATCH PROCEDURE / Unknown Urine Collect / Unknown 05/16/2024 21:18 EDT 05/16/2024 21:37 EDT Narrative Organism Antibiotic Method Susceptibility Escherichia coli Amoxicillin Clavulan ic acid VITEK SUSCEPTIBILITY <=2 ug/mL: Susceptible Escherichia coli Ampicillin VITEK SUSCEPTIBILITY <=2 ug/mL: Susceptible Escherichia coli Ampicillin Sulbactam VITEK SUSCEPTIBI LITY <=2 ug/mL: Susceptible Escherichia coli Cefazolin VITEK SUSCEPTIBILITY <=4 ug/mL: Susceptible Escherichia coli Cefepime VITEK SUSCEPTIBILITY <=1 ug/mL: Susceptible Escherichia coli Ceftriaxone VITEK SUSCEPTIBILITY <=1 ug/mL: Susceptible Escherichia coli Ciprofloxacin VITEK SUSCEPTIBILITY <=0.25 ug/mL: Susceptible Escherichia coli Ertapenem VITEK SUSCEPTIBILITY <=0.5 ug/mL: Susceptible Escherichia coli Gentamicin VITEK SUSCEPTIBILITY <=1 ug/mL: Susceptible Escherichia coli Levofloxacin VITEK SUSCEPTIBILITY <=0.12 ug/mL: Susceptible Escherichia coli Nitrofurantoin VITEK SUSCEPTIBILITY <=16 ug/mL: Susceptible Escherichia coli Piperacillin Tazobactam VITEK SUSCEPT IBILITY <=4 ug/mL: Susceptible Escherichia coli Tobramycin VITEK SUSCEPTIBILITY <=1 ug/mL: Susceptible Escherichia coli Trimethoprim-Sulfame thox azole VITEK SUSCEPTIBILITY <=20 ug/mL: Susceptible Rich Buchanan MD MICROBIOLOGY - GENERAL O RDERABLES Final Result Performing Organization Address City/[facility] Co de Phone Number [facility] [address] [place] [address] * TEST, URINE (05/16/2024 21:18 EDT) Test, Urine Negative Negative 05/16/2024 21:38 EDT [facility] Urine URINE SPECIMEN OBTAINED BY CLEAN CATCH PROCEDURE / Unknown Urine Collect / Unknown 05/16/2024 21:18 EDT 05/16/2024 21:21 EDT Rich Buchanan MD URINALYSIS ORDERABLES Fi nal Result Performing Organization Address [facility] Co de Phone Number [facility] [address] [place] [address] * CHLAMYDIA/N. GONORRHOEAE AMPLIFIED NUCLEIC ACID (05/16/2024 21:18 EDT) Neisseria gonorrhoeae Result Negative Negative 05/16/2024 22:53 [facility] Chlamydia trachomatis Result Negative Negative 05/16/2024 22:53 [facility] Swab VAGINAL STRUCTURE / Unknown Swab / Unknown 05/16/2024 21:18 EDT 05/16/2024 21:21 EDT [facility] - 05/16/2024 22:53 EDT ? ? Xpert CT/NG Assay performance has not been evaluated in patients less than 14 years of age. ? ? Xpert CT/NG Assay performance has not been evaluated in women, or in patients with a history of hysterectomy. Rich Buchanan MD MICROBIOLOGY - GENERAL O RDERABLES Final Result [facility] [address] [place] [address] * (ABNORMAL) UA CHEMICAL & SEDIMENT + REFLEX TO CULTURE (05/16/2024 21:18 EDT) Color UA Em(A) Colorless, Yellow 05/16/2024 21:37 [facility] Clarity UA Clear Clear 05/16/2024 21:37 [facility] Glucose UA Negative Negative mg/dL 05/16/2024 21:37 [facility] Bilirubin UA 1+(A) Negative 05/16/2024 21:37 [facility] Ketones UA Trace(A) Negative 05/16/2024 21:37 [facility] Specific [place], Urine >=1.030 1.001 - 1.030 05/16/2024 21:37 [facility] Blood UA 3+(A) Negative 05/16/2024 21:37 [facility] Nitrite UA Positive(A) Negative 05/16/2024 21:37 [facility] Leukocyte Esterase UA 2+(A) Negative 05/16/2024 21:37 [facility] Protein UA 2+(A) Negative mg/dL 05/16/2024 21:37 [facility] pH, UA 6.5 5.0 - 8.0 05/16/2024 21:37 [facility] Urine RBC Count, Manual >50(A) 0 - 2 Cells/HPF 05/16/2024 21:37 [facility] Urine WBC Count >50(A) 0 - 3 Cells/HPF 05/16/2024 21:37 [facility] Urine Squamous Count, Manual Few(A) None Seen Cells/HPF 05/16/2024 21:37 [facility] Urine Hyaline Cast Count, Manual <=10 <=10 Casts/LPF 05/16/2024 21:37 [facility] Urine Bacteria Count, Manual Moderate(A) None Seen Bacteria/HP F 05/16/2024 21:37 [facility] Urobilinogen UA 1.0 0.2-1.0 mg/dL mg/dL 05/16/2024 21:37 [facility] Urine URINE SPECIMEN OBTAINED BY CLEAN CATCH PROCEDURE / Unknown Urine Collect / Unknown 05/16/2024 21:18 EDT 05/16/2024 21:21 [facility] - 05/16/2024 21:37 [facility] Urine Sediment Analysis results are unreliable on urines that are unrefrigerated for >2 hrs or refrigerated >8 hrs. A Urine Culture test has been reflexively ordered based on result criteria from the Urine Sediment Analysis. Rich Buchanan MD URINALYSIS ORDERABLES [facility] Result [facility] [address] [place] [address] documented in this encounter Visit Diagnoses Diagnosis UTI (urinary tract infection), uncomplicated- Primary Urinary tract infection, site not specified documented in this encounter Administered Medications Inactive Administered Medications - up to 3 most recent administrations Medication Order MAR Action Action Date Dose Rate Site cefpodoxime (VANTIN) tablet 200 mg 200 mg, oral, NOW X1, 1 dose, On 05/16/24 at 2245, STAT Given 05/16/2024 22:39 EDT 200 mg Phenazopyridine 95 mg Tab STARTER PACK 1 Package, oral, NOW X1, 1 dose, On 05/16/24 at 2315, STAT Given 05/16/2024 22:54 EDT 1 Package documented in this encounter Active and Recently Administered Medications Times are shown in EDT. Scheduled Medication Order 05/14/2024 05/15/2024 05/16/2024 cefpodoxime (VANTIN) tablet 200 mg (COMPLETED) 200 mg, oral, NOW X1, 1 dose, On 05/16/24 at 2245, STAT 2239 (Given - Provid er: Lavonne Olson RN) Phenazopyridine 95 mg Tab STARTER PACK (COMPLETED) 1 Package, oral, NOW X1, 1 dose, On 05/16/24 at 2315, STAT 2254 (Given - Provid er: Briana Leo RN) documented in this encounter Care Teams Passenger Service Supervisor Relationship Specialty Start Date End Date Mohini Pina NP [address] [place] [address] PCP - General 09/26/22 documented as of this encounter
--- OUTSIDE RECORDS SUMMARY | 2024-09-22 09:44 | XMS_ITS | Encounter Summary ---
Author Organization [facility] Address [address] [place] [address] Care Team Providers Care Pipe Organ Mechanic Name Role Phone Unknown, Provider Primary Care Provider Unava ilable Encounter Details Date Type Department Care Team (Latest Contact Info) Description 05/22/2019 8:19 EDT - 05/22/2019 23:59 EDT Hospital Encounter [address] [address] Unknown, ProviderMD Discharge Disposition: Home or Self Care Social [...] Code Departure Means Destination Home or Self Shelter documented in this encounter Plan of Treatment Upcoming Encounters Date Type Department Care Team (Late st Contact Info) Description 11/18/2024 8:50 EDT Office Visit [facility] ENT [address] [place] [address] Varinder Parson MD [address] [facility] [address] [place] [phone] documented as of this encounter Visit Diagnoses Not on filedocumented in this encounter Care Teams Pipe Organ Mechanic Relationship Specialty Start Date End Date Unknown, ProviderMD PCP - General 06/17/17 09/25/22 documented as of this encounter
--- OUTSIDE RECORDS SUMMARY | 2024-09-22 09:44 | XMS_ITS | Encounter Summary ---
Author Organization [facility] Address [address] [place] [address] Care Team Providers Care Police Academy Program Coordinator Name Role Phone Mhoini Pina MERCHANDISE PICKUP/RECEIVING ASSOCIATE Primary Care Provider [phone] Reason for Visit * Reason Onset Date Comments Appointment Related 12/09/2022 Encounter Details Date Type Department Care Team (Late st Contact Info) Description 12/09/2022 Telephone [facility] [address] [place], [place] [id number] Varinder Parson MD [address] [facility] [address] [place] [address] Appointment Related Social History Tobacco [...] * Telephone Encounter - Mariam Barnes - 12/10/2022 1122 EDT Pt ret'd my call She has cancelled her surgery for now Will call back when she knows her summer schedule * Telephone Encounter - Mariam Barnes - 12/09/2022 1253 EDT Lm at number listed in msg * Telephone Encounter - Natividad Roy - 12/09/2022 1040 EDT Forwarding this to Mariam as it is a pre-op * Telephone Encounter - Naila Garcia - 12/09/2022 0742 EDT PAS Message: patient called to cancel appointment with Varinder Parson MD on 12/10 at 2:00 due to schedule conflict. Patient would like a call back to reschedule? Yes, please call between 10:30- 11:00 using [phone] documented in this encounter Plan of Treatment Upcoming Encounters Date Type Department Care Team (Late st Contact Info) Description 11/18/2024 8:50 EDT Office Visit [facility] ENT [address] [place], [place] [id number] Varinder Parson MD [address] [place] [address] documented as of this encounter Visit Diagnoses Not on filedocumented in this encounter Care Teams [employer] Program Coordinator Relationship Specialty Start Date End Date Mohini Pina NP [address] [place] [address] PCP - General 09/26/22 documented as of this encounter
--- OUTSIDE RECORDS SUMMARY | 2024-09-22 09:44 | XMS_ITS | Encounter Summary ---
Author Organization [facility] Address [address] [place] [address] Care Team Providers Care Credit Collections Specialist Name Role Phone Savanah Kennedy SUSANA Primary Care Provider [phone] Encounter Details Date Type Department Care Team (Late st Contact Info) Description 09/09/2011 Phlebotomy Only [facility] [address] [place] [address] Civil Engineering Drafter, Outpatient FTT (failure to thrive) Social History Tobacco Use Types Packs/Day Years [...] Info) Description 11/18/2024 8:50 EDT Office Visit [facility] ENT [address] [place] [address] Varinder Parson MD [address] [facility] [address] [place] [address] documented as of this encounter Procedures Procedure Name Priority Date/Time Associated Diagnosis Comments INSULIN-LIKE GROWTH FACTOR BINDING PROTEIN 3 (IGFBP-3), SERUM Routine 09/09/2011 14:54 EST FTT (failure to thrive) VITAMIN D (25,OH) Routine 09/09/2011 14: 54 EST FTT (failure to thrive) TISSUE TRANSGLUTAMINASE ANTIBODY, IGA Routine 09/09/2011 14:54 EST FTT (failure to thrive) IGA Routine 09/09/2011 14:54 EST FTT (failure to thrive) IGF-1, LC/MS, S Routine 09/09/2011 14:54 EST FTT (failure to thrive) COMPLETE BLOOD COUNT AND DIFFERENTIAL Routine 09/09/2011 14:54 EST FTT (failure to thrive) TSH Routine 09/09/2011 14:54 EST FTT (failure to thrive) T4 FREE Routine 09/09/2011 14:54 EST FTT (failure to thrive) PHOSPHORUS Routine 09/09/2011 14:54 EST FTT (failure to thrive) COMPREHENSIVE METABOLIC PANEL (CMP) Routine 09/09/2011 14:54 EST FTT (failure to thrive) documented in this encounter Results * VITAMIN D (25,OH) (09/09/2011 14:54 EST) 25OH Vitamin D Tot 25.9 ng/ml [facility] Comment: Reference Range: <10 ng/ml: Deficient 10-30 ng/ml: Insufficient 30-100 ng/ml: Sufficient >100 ng/ml: Toxic Blood specimen (specimen) 09/09/2011 14:54 EST 09/09/2011 15:07 EST us Maddy Romero MD CHEMISTRY & BLOOD GAS ORDERABL ES Final Result [facility] [address] [place] [address] * INSULIN-LIKE GROWTH FACTOR BINDING PROTEIN 3 (IGFBP-3), SERUM (09/09/2011 14:54 EST) IGFBP-3 4.0 mcg/mL [facility] Comment: (Note) -- REFERENCE VALUE -- 1.8-7.1 Alok Stages: ? Females: I ? 1.4-5.2 II ?2.3-6.3 III ?? 3.1-8.9 IV ?3.7-8.7 V ? 2.6-8.6 Performed by: [facility] [employer] [place], [address] [facility], [place] [address], Clothes Wringer: Victoria Cheng, Ph.D. Blood specimen (specimen) 09/09/2011 14:54 EST 09/09/2011 15:07 EST Maddy Romero MD CHEMISTRY & BLOOD GAS ORDERABL ES Final Result Performing Organization Address [facility] de Phone Number [facility] [address] [place] [address] * INSULIN LIKE GROWTH FACTOR I (IGF-1) (09/09/2011 14:54 EST) Pathologist [facility] Insulin-Like Growth Factor 1, S 135 ng/mL [facility] Comment: (Note) -- REFERENCE VALUE -- 81-389 0.1 percentile = 52 ng/mL Performed by: [facility] [employer] [place], [address] [facility], [place] [address], Clothes Wringer: Victoria Cheng, Ph.D. Blood specimen (specimen) 09/09/2011 14:54 EST 09/09/2011 15:07 EST Maddy Romero MD CHEMISTRY & BLOOD GAS ORDERABL ES Final Result Performing Organization Address [facility] de Phone Number [facility] [address] [place] [address] * IGA (09/09/2011 14:54 EST) Pathologist [facility] IgA 62 45 - 237 mg/dl [facility] Blood specimen (specimen) 09/09/2011 14:54 EST 09/09/2011 15:07 EST us Maddy Romero MD CHEMISTRY & BLOOD GAS ORDERABL ES Final Result Performing Organization Address [facility] Co de Phone Number [facility] [address] [place] [address] * TTG AB, IGA, S (09/09/2011 14:54 EST) Pathologist [facility] tTG Ab, IgA, S <1.2 <4.0 (Negative) U/mL [facility] Comment: Performed or Referred by: [facility] Path, [address] [place] [address], Lab Dir: Nathan Fonseca III, MD Blood specimen (specimen) 09/09/2011 14:54 EST 09/09/2011 15:07 EST Maddy Romero MD IMMUNOLOGY AND SEROLOGY ORDERA BLES Final Result Performing Organization Address [facility] Co de Phone Number [facility] [address] [place] [address] * HEMAGRAM AND DIFFERENTIAL (09/09/2011 14:54 EST) Pathologist [facility] WBC 4.88 4.5 - 13.5 K/cmm [facility] RBC 4.95 4.00 - 6.20 M/cmm [facility] Hemoglobin 14.0 11.5 - 15.5 gm/dl [facility] HCT 40.1 35.0 - 45.0 % [facility] MCV 81 77 - 95 fl [facility] MCH 28.3 pg [facility] MCHC 35.0 gm/dl [facility] PLT 167 156 - 312 K/cmm [facility] RDW-CV 13.0 % [facility] % Neutrophils 54.8 % [facility] % Lymphocytes 36.6 % [facility] % Monocytes 5.9 % [facility] % Eosinophils 2.0 % [facility] % Basophils 0.7 % [facility] ABS Neutrophils 2.68 K/cmm [facility] ABS Lymphs 1.79 K/cmm [facility] ABS Monocytes 0.29 K/cmm [facility] ABS Eosinophils 0.10 K/cmm [facility] ABS Basophils 0.03 K/cmm [facility] Type of Diff: Automated [facility] Blood specimen (specimen) 09/09/2011 14:54 EST 09/09/2011 15:07 EST Maddy Romero MD PACKAGES & DNA PROBE ORDERABLE S Final Result Performing Organization Address City/[facility]/ZIP Co de Phone Number [facility] [address] [place] [address] * T4 FREE (09/09/2011 14:54 EST) Free T4 1.1 0.8 - 1.5 ng/dL [facility] Blood specimen (specimen) 09/09/2011 14:54 EST 09/09/2011 15:07 EST Maddy Romero MD CHEMISTRY & BLOOD GAS ORDERABL ES Final Result Performing Organization Address [facility] de Phone Number [facility] [address] [place] [address] * TSH (09/09/2011 14:54 EST) TSH 1.55 0.35 - 5.00 uIU/ml [facility] Blood specimen (specimen) 09/09/2011 14:54 EST 09/09/2011 15:07 EST Maddy Romero MD CHEMISTRY & BLOOD GAS ORDERABL ES Final Result Performing Organization Address [facility] Co de Phone Number [facility] [address] [place] [address] * PHOSPHORUS (09/09/2011 14:54 EST) Phosphorus 5.0 3.7 - 5.6 mg/dl [facility] Blood specimen (specimen) 09/09/2011 14:54 EST 09/09/2011 15:07 EST Maddy Romero MD CHEMISTRY & BLOOD GAS ORDERABL ES Final Result Performing Organization Address [facility] Co de Phone Number [facility] [address] [place] [address] * COMPREHENSIVE METABOLIC PANEL (CMP) (09/09/2011 14:54 EST) Potassium 4.2 3.6 - 5.2 mEq/L [facility] Sodium 138 136 - 145 mEq/L [facility] Chloride 102 96 - 110 mEq/L [facility] CO2 26 24 - 32 mEq/L [facility] Total Alkaline Phosphatase 264 175 - 420 U/L [facility] Bilirubin, Total <0.5 0.0 - 1.4 mg/dl [facility] AST 29 16 - 46 U/L [facility] ALT 31 10 - 35 U/L [facility] Albumin 4.3 3.0 - 5.5 g/dl [facility] Total Protein 7.1 6.2 - 8.1 g/dl [facility] Creatinine 0.40 0.32 - 0.64 mg/dl [...] ORDERABL ES Final Result Performing Organization Address [facility] Co de Phone Number [facility] [address] [place] [address] documented in this encounter Visit Diagnoses Diagnosis FTT (failure to thrive) Failure to thrive in childhood documented in this encounter Care Teams Credit Collections Specialist Relationship Specialty Start Date End Date Savanah Kennedy FNP [address] [place] [address] PCP - General 07/03/11 06/16/17 documented as of this encounter
--- OUTSIDE RECORDS SUMMARY | 2024-09-22 09:44 | XMS_ITS | Encounter Summary ---
Author Organization [facility] Address [address] [place] [address] Care Team Providers Care Aircraft Restorer Name Role Phone Unknown, Provider Primary Care Provider Unava ilable Reason for Referral * Radiology Services (Routine) - Closed Specialty Diagnoses / Procedures Referred By Contac t Referred To Contact Diagnoses Scoliosis concern Procedures ENTIRE SPINE 2-3 VIEWS Aminah Matos PA-C Phone: tel: fax: Referral ID Status Reason Start Date Expiration Date Visits Re quested Visits Authorized [id number] Closed 07/25/2017 1 1 Encounter Details Date Type Department Care Team (Late st Contact Info) Description 07/25/2017 Orders Only [facility] Hand & Upper Extremity Program - [address] [place] [address] Aminah Matos PA-C [address] [place] [address] [place] [address] Scoliosis concern (Primary Dx) Social History Tobacco Use Types [...] Info) Description 11/18/2024 8:50 EDT Office Visit [facility] ENT [address] [place] [address] Varinder Parson MD [address] [facility] [address] [place] [address] documented as of this encounter Procedures Procedure Name Priority Date/Time Associated Diagnosis Comments ENTIRE SPINE 2-3 VIEWS Routine 07/29/2017 13:18 EST Scoliosis concern documented in this encounter Results * ENTIRE SPINE 2-3 VIEWS (07/29/2017 13:18 EST) Anatomical Region Laterality Modality Other 07/29/2017 13:1 8 EST 07/29/2017 16:32 EST Narrative 07/29/2017 16:32 EST ENTIRE SPINE 2-3 VIEWS ??07/29/2017 1:18 PM Clinical History/Comments: Encounter for screening for other musculoskeletal [id number]; scoliosis. Comparison: None. Findings: Upright PA and lateral views of the entire spine are obtained. There is a midthoracic ??dextroscoliosis and thoracolumbar ?? levoscoliosis. Measurements to be obtained by orthopedics. On the lateral view, vertebral body height and disc spaces overall appear well preserved. There is some straightening of the normal thoracic and lumbar curves. There are 12 rib-bearing vertebral bodies and 5 nonrib-bearing lumbar-type vertebra . The cardiomediastinal silhouette is normal. There is a left-sided aortic arch. The lungs are clear. The bowel gas pattern is normal. SI joints, pubic symphysis are unremarkable. There is no evidence of hip subluxation or dislocation. Impression: Scoliosis as above. Measurements per orthopedics. I have personally reviewed the images and the above interpretation and agree with the findings. Procedure Note Luis Antonio Bhatia MD - 07/29/2017 ENTIRE SPINE 2-3 VIEWS 07/29/2017 1:18 PM Clinical History/Comments: Encounter for screening for other musculoskeletal [id number]; scoliosis. Comparison: None. Findings: Upright PA and lateral views of the entire spine are obtained. There is a midthoracic dextroscoliosis and thoracolumbar levoscoliosis. Measurements to be obtained by orthopedics. On the lateral view, vertebral body height and disc spaces overall appear well preserved. There is some straightening of the normal thoracic and lumbar curves. There are 12 rib-bearing vertebral bodies and 5 nonrib-bearing lumbar-type vertebra . The cardiomediastinal silhouette is normal. There is a left-sided aortic arch. The lungs are clear. The bowel gas pattern is normal. SI joints, pubic symphysis are unremarkable. There is no evidence of hip subluxation or dislocation. Impression: Scoliosis as above. Measurements per orthopedics. I have personally reviewed the images and the above interpretation and agree with the findings. Aminah Matos PA-C IMG DIAGNOSTIC IMAGING ORDERABLES Final Result documented in this encounter Visit Diagnoses Diagnosis Scoliosis concern- Primary Special screening for other specified conditions documented in this encounter Care Teams Aircraft Restorer Relationship Specialty Start Date End Date Unknown, Provider, PCP - General 06/17/17 09/25/22 documented as of this encounter
--- OUTSIDE RECORDS SUMMARY | 2024-09-22 09:44 | XMS_ITS | Encounter Summary ---
Author Organization [facility] Address [address] [place] [address] Care Team Providers Care Senior Android Developer Name Role Phone Mohini Pina TAX EXPERT Primary Care Provider [phone] Reason for Visit * Reason Comments Strep Throat Chronic sore throat and strep treated 5 times in 2 years. Very severe symptoms. Large tonsils also recurrent tonsillitis. * Referral (Routine) - Authorization Not Required Specialty Diagnoses / Procedures Referred By [facility] Referred To Contact Diagnoses Acute tonsillitis, unspecified Mohini Pina, TAX EXPERT [address] [place] [address] Phone: tel: fax: [facility] ENT [address] [place] [address] Phone: tel: fax: Referral ID Status Reason Start Date Expiration Date Visits Requested Visits Authorized [id number] Authorization Not Required 1 1 Encounter Details Date Type Department Care Team (Late st Contact Info) Description 09/26/2022 13:20 EST Office Visit [facility] ENT [address] [place] [address] Varinder Parson MD [address] [place] [address] [address] [place] [address] Chronic tonsillitis (Primary Dx) Social History Tobacco Use Types [...] Sign Reading Time Taken Comments Blood Pressure - - Pulse - - Temperature - - Respiratory Rate - - Oxygen Saturation - - Inhaled Oxygen Concentration - - Weight 48.1 kg (106 lb) 09/26/2022 1300 EST Height 157.5 cm (5' 2) 09/26/2022 1300 EST Body Mass Index 19.39 09/26/2022 1300 EST documented in this encounter Progress Notes * Varinder Parson MD - 09/26/2022 1320 EST CHIEF COMPLAINT: Chronic tonsillitis HPI: 22-year-old female with a history of chronic recurrent strep throat and tonsillitis with 3-5 episodes per year with at least 3 episodes per year for the last 3 years. Her symptoms are described as severe. She also has chronically enlarged tonsils. She is requesting tonsillectomy. Past Medical History: Diagnosis Date ??? Bowel disease No past surgical history on file. Allergies Allergen Reactions ??? Other - See Comments Benjamin's Drug Multivitamin- Patient's skin turned red from head to toe Outpatient Medications Marked as Taking for the 09/26/22 encounter (Office Visit) with Varinder Parson MD Medication Sig Dispense Refill ??? norgestimate-ethinyl estradiol (ESTARYLLA ORAL) Take by mouth. Family History Problem Relation Age of Onset ??? Short Stature Mother ??? Hypertension Maternal Uncle ??? Hypertension Maternal Grandfather ??? Heart Attack Under 50 Maternal Grandfather ??? Thyroid Disease Paternal Grandmother hyperthyrodisim ?, s/p thryodectomy ??? High Cholesterol Paternal Grandmother ??? High Cholesterol Paternal Grandfather ??? Diabetes Other ??? Short Stature Other M 2nd aunts leass than 5 ft ??? High Cholesterol Other PGGF ??? Thyroid Cancer/Nodule Neg Hx ??? Infertility Neg Hx ??? in Infancy Neg Hx ??? SIDS Neg Hx ??? Cystic Fibrosis Neg Hx ??? Inflammatory Bowel Disease Neg Hx ??? Crohn's Disease Neg Hx ??? Celiac Disease Neg Hx Social History Socioeconomic History ??? Marital status: Single Spouse name: Not on file ??? Number of children: Not on file ??? Years of education: Not on file ??? Highest education level: Not on file Occupational History ??? Not on file Tobacco Use ??? Smoking status: Never ??? Smokeless tobacco: Never Substance and Sexual Activity ??? Alcohol use: No ??? Drug use: No ??? Sexual activity: Not on file Other Topics Concern ??? Not on file Social History Narrative ??? Not on file Social Determinants of Health Financial Resource Strain: Not on file Food Insecurity: Not on file Transportation Needs: Not on file Physical Activity: Not on file Stress: Not on file Social Connections: Not on file Housing Stability: Not on file REVIEW OF SYSTEMS: Negative for complete review of systems PHYSICAL EXAM: Ht 157.5 cm (62) Wt 48.1 kg (106 lb) BMI 19.39 kg/m?? General: Well-developed well-nourished alert oriented cooperative adult female no acute distress. Normal voice. The face is normal without lesions. Facial strength is symmetric. Eye exam is normal. Ears: External ears are normal canals are clear tympanic membranes are normal. Hearing is intact. Nose: Nasal dorsum is midline the anterior nasal airways patent. Oral cavity is clear. Posterior pharynx reveals 3+ enlarged cryptic tonsils noninflamed. Neck: There is bilateral anterior cervical lymphadenopathy mild in the jugulodigastric area. Trachea is midline thyroid is normal. Chest is clear to auscultation. Heart regular rate and rhythm. IMPRESSION: Chronic recurrent tonsillitis and strep throat. PLAN: We will schedule patient for elective tonsillectomy. Instruction material on tonsillectomy was given to the patient and discussed in detail. Patient understands agrees with current plan. documented in this encounter Plan of Treatment Upcoming Encounters Date Type Department Care Team (Late st Contact Info) Description 11/18/2024 8:50 EDT Office Visit [facility] ENT [address] [place], [place] [phone] Varinder Parson MD [address] [facility] [address] [place] [address] documented as of this encounter Visit Diagnoses Diagnosis Chronic tonsillitis- Primary documented in this encounter Historical Medications * This list may reflect changes made after this encounter. norgestimate-ethin yl estradiol (ESTARYLLA ORAL) Take by mouth. added in this encounter Care Teams Senior Android Developer Relationship Specialty Start Date End Date Mohini Pina, TAX EXPERT [address] [place] [address] PCP - General 09/26/22 documented as of this encounter
--- OUTSIDE RECORDS SUMMARY | 2024-09-22 09:44 | XMS_ITS | Encounter Summary ---
Author Organization [facility] Address [address] [place] [address] Care Team Providers Care Cap Machine Operator Name Role Phone Unknown, Provider Primary Care Provider Mohini Gorman COLD HEADER OPERATOR Primary Care Provider [phone] Encounter Details Date Type Department Care Team (Late st Contact Info) Description 09/13/2022 Lab Requisition [facility] Pathology & Laboratory Medicine - [facility] [address] [place] [address] Outr Resulting Lab, Provider Social History Tobacco [...] Info) Description 11/18/2024 8:50 EDT Office Visit [facility] ENT [address] [place] [address] Varinder Parson MD [address] [facility] [address] [place] [address] documented as of this encounter Procedures Procedure Name Priority Date/Time Associated Diagnosis Comments ZZCOVID-19 TEST [facility] PCR Today 09/12/2022 11:30 EST COVID-19 TESTING Routine 09/12/2022 11:3 0 EST documented in this encounter Results * COVID-19 TEST [facility] PCR (09/12/2022 11:30 EST) Swab 09/12/2022 11:3 0 EST 09/13/2022 20:18 EST us Provider Outr Resulting Lab MICROBIOLOGY - GENER AL ORDERABLES Final Result [facility] [address] [place] [address] * COVID-19 TESTING (09/12/2022 11:30 EST) COVID-19 rt-PCR Result Negative Negative 09/14/2022 11:47 EST [facility] Comment: This test has not been FDA cleared or approved. This test has been authorized by FDA under an EUA for use by authorized laboratories. This test has been authorized only for detection of nucleic acid from 2019-nCoV, not for any other viruses or pathogens. This test is only authorized for the duration of the declaration that circumstances exist justifying the authorization of emergency use of in vitro diagnostic tests for detection and/or diagnosis of 2019-nCoV under section 564(b)(1) of Act, 21 U.S.C ?? 360bbb-3(b) (1), unless the authorization is terminated or revoked sooner. Negative results do not preclude 2019-nCoV infection and should not be used as the sole basis for treatment or other patient management decisions. Negative results must be combined with clinical observations, patient history, and epidemiological information. Testing was performed using the tiffanie SARS-CoV-2 assay ([employer] on the Tiffanie 6800 System Performing Lab Tiffanie 6800 [facility] 09/14/2022 11:47 EST [facility] Swab 09/12/2022 11:3 0 EST 09/13/2022 20:18 EST us Provider Outr Resulting Lab MICROBIOLOGY - GENER AL ORDERABLES Final Result [facility] [address] [place] [address] documented in this encounter Visit Diagnoses Not on filedocumented in this encounter Care Teams Cap Machine Operator Relationship Specialty Start Date End Date Unknown, Provider, PCP - General 06/17/17 09/25/22 Mohini Pina, COLD HEADER OPERATOR [address] [place] [address] PCP - General 09/26/22 documented as of this encounter
--- OUTSIDE RECORDS SUMMARY | 2024-09-22 09:44 | XMS_ITS | Encounter Summary ---
Author Organization [facility] Address [address] [place] [address] Care Team Providers Care Tier Truck Driver Name Role Phone Yovani Mohini Raina MANUFACTURING WEAVER Primary Care Provider [phone] Encounter Details Date Type Department Care Team (Late st Contact Info) Description 10/02/2022 Orders Only [facility] ENT [address] [place] [address] Varinder Parson MD [address] [place] [phone] Pre-operative laboratory examination (Primary Dx) Social History Tobacco Use Types [...] Info) Description 11/18/2024 8:50 EDT Office Visit [facility] ENT [address] [place] [address] Varinder Parson MD [address] [place] [phone] documented as of this encounter Visit Diagnoses Diagnosis Pre-operative laboratory examination- Primary Pre-procedural laboratory examination documented in this encounter Care Teams Tier Truck Driver Relationship Specialty Start Date End Date Mohini Pina NP [address] [place] [address] PCP - General 09/26/22 documented as of this encounter
--- OUTSIDE RECORDS SUMMARY | 2024-09-22 09:44 | XMS_ITS | Encounter Summary ---
Author Organization [facility] Address [address] [place] [address] Care Team Providers Care Supervisor Ordnance Truck Installation Name Role Phone Unknown, Provider Primary Care Provider Unava ilable Reason for Visit * Reason Comments Scoliosis Scoliosis no doi/dos Encounter Details Date Type Department Care Team (Late st Contact Info) Description 07/29/2017 13:45 EST Office Visit [facility] Spine Program - [address] [place], [place] [phone] Aminah Matos PA-C [address] [facility] [place] [address] Adolescent idiopathic scoliosis of thoracolumbar region (Primary Dx) Discharge Disposition: Auto Discharge Social [...] - Inhaled Oxygen Concentration - - Weight 44.5 kg (98 lb) 07/29/2017 1326 EST Height 153.7 cm (5' 0.5) 07/29/2017 1326 EST Body Mass Index 18.82 07/29/2017 1326 EST Body Mass Index Percentile 35.17% 07/29/2017 132 6 EST Growth Chart: CDC (Girls, 2- 20 Years) documented in this encounter Discharge Diagnoses Diagnosis M41.9 Scoliosis, unspecified-M41.9[ICD-10-CM] documented in this encounter Discharge Disposition Disposition Code Departure Means Destination Auto Discharge documented in this encounter Progress Notes * Aminah Matos PA - 07/29/2017 1345 EST Vandana Perez is being seen as a consultation from Dr. Guerrero. Chief Complaint Patient presents with ??? Scoliosis Scoliosis no doi/dos The encounter diagnosis was Adolescent idiopathic scoliosis of thoracolumbar region. HPI SUBJECTIVE: The patient is a 16 y.o. and 11 months female adolescent, Risser 4, menarche x1 years, who has grown about 2 inches in the last year. She is currently in the 9th grade, plays soccer. She was seen at an urgent care since her friends noted a curve in her back while bending to seed cone picker something at the library at school, and subsequently, she referred the patient to us for evaluation and consideration of further treatment options. She notes she has no pain in her back; no numbness, tingling or weakness in her extremities. PAST MEDICAL HISTORY: No known drug allergies. MEDICATIONS: None. SOCIAL HISTORY: The patient is a student in 9th grade, plays soccer. Her parents are . There are NO smokers in the house. FAMILY HISTORY: The patient's parents had no scoliosis. No other cousins, siblings or step siblingsor first or second-degree relatives with scoliosis. OBJECTIVE: 1. Cooperative, appropriate. 2. Weight: 98 lbs. 3. Height: 65 inches. 4. Romberg: Negative static and dynamic. 5. Mar sign: Negative 6. Heel and toe walk without difficulty. 7. Spine nontender. 8. No hairy patches or skin lesions. Reflexes: Patellar B/L 2/4, Achilles B/L 2/4, no clonus. 9. A 1 cm right thoracic prominence is noted. DIAGNOSTIC DATA: X-rays, full length PA films show a RIGHT thoracic curve of 22 degrees measured from T-5 to T-11 and a LEFT lumbar curve of 23 degrees measured from T12 to L4. ASSESSMENT: Concerns of scoliosis. Progressive adolescent idiopathic scoliosis. I discussed these findings with the patient and her mother. I also elaborated on the natural history of scoliosis, and given the magnitude of the curve including the continued growth potential, I explained that the likelihood of progression is quite low. We discussed options including expectant management with observation. PLAN: 1. Continue activities without restrictions. 2. Return to clinic in 12 months - obtain new scoli films upon return. Dr. Cui was the attending physician available in the clinic today if needed. A consultation was not required. HPI Patient Active Problem List Diagnosis ??? FTT (failure to thrive) ??? Vitamin D deficiency ??? Adolescent idiopathic scoliosis of thoracolumbar region History reviewed. No pertinent past medical history. History reviewed. No pertinent surgical history. Social History Substance Use Topics ??? Smoking status: Never Smoker ??? Smokeless tobacco: Never Used ??? Alcohol use No Family History Problem Relation Age of Onset [...] Neg Hx ??? Celiac Disease Neg Hx No current outpatient prescriptions on file. No current facility-administered medications for this visit. Allergies Allergen Reactions ??? Other - See Comments Benjamin's Drug Multivitamin- Patient's skin turned red from head to toe Review of Systems Physical Exam Ortho Exam Neurologic Exam No orders of the defined types were placed in this encounter. documented in this encounter Plan of Treatment Upcoming Encounters Date Type Department Care Team (Late st Contact Info) Description 11/18/2024 8:50 EDT Office Visit [facility] ENT [address] [place] [address] Varinder Parson MD [address] [facility] [address] [place] [address] documented as of this encounter Visit Diagnoses Diagnosis Adolescent idiopathic scoliosis of thoracolumbar region- Primary Scoliosis (and kyphoscoliosis), idiopathic documented in this encounter Care Teams Supervisor Ordnance Truck Installation Relationship Specialty Start Date End Date Unknown, Provider, PCP - General 06/17/17 09/25/22 documented as of this encounter
--- OUTSIDE RECORDS SUMMARY | 2024-09-22 09:45 | XMS_ITS ---
Author Organization Unknown Address [address] [place] [phone] Phone Care Team Providers Care Aerospace Medicine Physician Name Role Phone JOSELIN Lebron Registered Nurse Unavailable DAVID Robles Attending Unavailable ALEXANDRE [facility] Unavailable MARCELA Paris Primary Unavailable UNLISTED PROVIDER - REQUESTED Xhandoff Un available Social History Type Status Start Date End Date Code Code Syst em Smoking History Never smoker (Never Smoked) 872636702 SNOMED CT Sex Female Vital Signs Vital Sign Value Unit [place] Value [place] Unit Date/Time Recent/Initial? Code Code System Body Mass Index 20.78 kg/m2 11/09/2021 19:15 Initial 88029 -5 [facility] Body Mass Index Percentile 39 % 11/09/2021 19:15 Initial 81897 -9 [facility] Systolic Blood Pressure 134 mm[Hg] 11/09/2021 19:15 Initial 8480- 6 [facility] Diastolic Blood Pressure 87 mm[Hg] 11/09/2021 19:15 Initial 8462- 4 [facility] Body Surface Area 1.47 m2 11/09/2021 19:15 Initial 3140- 1 LOINC Height 154.940 0 cm 61.00 in 11/09/2021 19:15 Initial 8302- 2 LOINC O2 Saturation 98 % 2021 19:34 Most Recent 52332 -5 LOINC O2 Saturation 99 % 2021 19:15 Initial 99514 -5 LOINC Pulse 84.0 /min 11/09/2021 19:15 Initial 8867- 4 LOINC Respiration 16 /min 11/10/19 19:34 Most Recent 9279- 1 LOINC Respiration 16 /min 11/10/19 19:15 Initial 9279- 1 LOINC Temperature 36.8 Bella 98.2 F 11/10/19 19:15 Initial 8310- 5 LOINC Weight 49.90 kg 110.00 lbs 11/09/2021 19:15 Initial 21453 -7 [facility] Medications Medication Start Date End Date Route Frequency Dose Code Code System Medication Instructions Home Meds Amoxicillin 250MG/5ML Oral Powder for Suspension 03/05/2022 Unknown ORAL THREE TIMES A DAY 10 mL 356376 RxNorm TAKE 10 mL ORAL THREE TIMES A DAY Hospital Discharge Instructions Should you have any questions prior to discharge, please contact a member of your healthcare team. If you have left the hospital and have any questions, please contact your primary care physician. Reason For Referral No Data Found Allergies and Adverse Reactions Allergy Substance Reaction Severity Start Date Concern Status Co de Code System No Known Drug Allergies Active [id number] SNOMED-CT Plan of Treatment Exposure 07/07/2020 Encounters Encounter Diagnosis Start Date Code Code Sys tem Panic disorder [episodic paroxysmal anxiety] 2 SNOMED-CT Personal Care Team Section Performer Name Performer Role Active Date Inactive Nader chen
--- OUTSIDE RECORDS SUMMARY | 2024-09-22 09:45 | XMS_ITS ---
Author Organization Unknown Address [address] [place] [phone] Phone Care Team Providers Care Third Helper Name Role Phone JONATAN Gonsalez Attending Unavailable Social History Type Status Start Date End Date Code Code Syst em Smoking History Never smoker (Never Smoked) 223278013 SNOMED CT Sex Female Medications Medication Start Date End Date Route Frequency Dose Code Code System Medication Instructions Home Meds Amoxicillin 250MG/5ML Oral Powder for Suspension 03/05/2022 Unknown ORAL THREE TIMES A DAY 10 mL 691684 RxNorm TAKE 10 mL ORAL THREE TIMES [...] Code System No Known Drug Allergies Active 342726513 SNOMED-CT Plan of Treatment Exposure 07/07/2020 Personal Care Team Section Performer Name Performer Role Active Date Inactive Da te
--- OUTSIDE RECORDS SUMMARY | 2024-09-22 09:46 | XMS_ITS ---
Author Organization Unknown Address [address] [place] [address] [phone] Phone Care Team Providers Care Lead Cargoman Name Role Phone JARRED KAUFMAN Registered Nurse Unavailable EFREN Alvarenga Attending Unavailable UNLISTED PROVIDER - REQUESTED Xhandoff Un available Results [facility] COVID FLU RSV GENEXPE RT - Collect Date/Time: 11/08/2021 07:20 [facility] ID: [id number] [address] [place], [place], [phone] LOINC: 50698-3 Test Value Unit Reference Range Code Code System Flag COVID POSITIVE Normal: Negative 39665-3 LOINC A INFLUENZA A DNA NEGATIVE Normal: Negative 99928-2 LOINC INFLUENZA B DNA NEGATIVE Normal: Negative 48367-1 LOINC RSV DNA NEGATIVE Normal: Negative 56553-8 LOINC Social History Type Status Start Date End Date Code Code Syst em Smoking History Never smoker (Never Smoked) 389419351 SNOMED CT Sex Female Vital Signs Vital Sign Value Unit Kings Value Kings Unit Date/Time Recent/Initial? Code Code System Body Mass Index 19.84 kg/m2 11/08/2021 07:07 Initial 66815 -5 LOINC Body Mass Index Percentile 26 % 11/08/2021 07:07 Initial 81854 -9 LOINC Systolic Blood Pressure 125 mm[Hg] 11/08/2021 07:07 Initial 8480- 6 LOINC Diastolic Blood Pressure 75 mm[Hg] 11/08/2021 07:07 Initial 8462- 4 LOINC Body Surface Area 1.43 m2 11/08/2021 07:07 Initial 3140- 1 LOINC Height 154.940 0 cm 61.00 in 11/08/2021 07:07 Initial 8302- 2 LOINC O2 Saturation 97 % 2021 07:07 Initial 27231 -5 LOINC Pulse 95.0 /min 11/08/2021 07:07 Initial 8867- 4 LOINC Respiration 20 /min 11/09/19 07:07 Initial 9279- 1 LOINC Temperature 37.2 Bella 99.0 F 11/09/19 07:07 Initial 8310- 5 LOINC Weight 47.63 kg 105.00 lbs 11/08/2021 07:07 Initial 90898 -[address] [facility] Medications Medication Start Date End Date Route Frequency Dose Code Code System Medication Instructions Home Meds Amoxicillin 250MG/5ML Oral Powder for Suspension 03/05/2022 Unknown ORAL THREE TIMES A DAY 10 mL 670742 RxNorm TAKE 10 mL ORAL THREE TIMES [...] Code System No Known Drug Allergies Active 544529382 SNOMED-CT Plan of Treatment Exposure 07/07/2020 Encounters Encounter Diagnosis Start Date Code Code Sys tem COVID-19 11/08/2021 SNOMED-CT Personal Care Team Section Performer Name Performer Role Active Date Inactive Nader chen
--- OUTSIDE RECORDS SUMMARY | 2024-09-22 09:46 | XMS_ITS ---
Author Organization Unknown Address [address] [place] [phone] Phone Care Team Providers Care Hydrant Setter Name Role Phone TR ALEMAN Registered Nurse Unavailable TR GARCIA Registered Nurse Unavailable RK Mathews Attending Unavailable EMILEE JERRY Unavailable MARCELA Paris Primary Unavailable UNLISTED PROVIDER - REQUESTED Xhandoff Un available Results XR HAND 3V RT* - Completed: 01/06/2022 17:09 LOINC: RIGHT HAND, 3 VIEWS: There is no evidence of acute fracture nor dislocation. Bone density normal. No osseous lesions. No radiopaque foreign body. IMPRESSION: No acute osseous findings. Dictated by: LISA LAW MD Transcribed by: ABDOULAYE 01/07/22/14:39 [id number] Electronically Reviewed and Signed By: CHARY LAW MD 01/07/22 17:22 Copy for: 185 HEALTH INFORMATION MGMT DISCHARGED XR WRIST 3V OR MORE RT* - Co mpleted: 01/06/2022 17:09 LOINC: RIGHT WRIST, 4 VIEWS: No evidence of fracture nor dislocation. Scaphoid unremarkable. No significant ulnar variance. Bone density normal. No osseous lesions. IMPRESSION: No significant osseous findings. Dictated by: LISA LAW MD Transcribed by: ABDOULAYE 01/07/22/14:47 [id number] Electronically Reviewed and Signed By: CHARY LAW MD 01/07/22 17:25 Copy for: 185 HEALTH INFORMATION MGMT DISCHARGED Social History Type Status Start Date End Date Code Code Syst em Smoking History Never smoker (Never Smoked) 628571062 SNOMED CT Sex Female Vital Signs Vital Sign Value Unit [place] Value [place] Unit Date/Time Recent/Initial? Code Code System Body Mass Index 19.20 kg/m2 01/06/2022 14:19 Initial 70600 -5 LOINC Body Mass Index Percentile 18 % 01/06/2022 14:19 Initial 19763 -9 LOINC Systolic Blood Pressure 131 mm[Hg] 01/06/2022 14:19 Initial 8480- 6 LOINC Diastolic Blood Pressure 74 mm[Hg] 01/06/2022 14:19 Initial 8462- 4 LOINC Body Surface Area 1.44 m2 01/06/2022 14:19 Initial 3140- 1 LOINC Height 157.480 0 cm 62.00 in 01/06/2022 14:19 Initial 8302- 2 LOINC O2 Saturation 100 % 2021 14:19 Initial 05564 -5 LOINC Pulse 92.0 /min 01/06/2022 14:19 Initial 8867- 4 LOINC Respiration 18 /min 01/07/20 14:19 Initial 9279- 1 LOINC Temperature 36.3 Bella 97.3 F 01/07/20 14:19 Initial 8310- 5 LOINC Weight 47.63 kg 105.00 lbs 01/06/2022 14:19 Initial 21696 -7 LOINC Medications Medication Start Date End Date Route Frequency Dose Code Code System Medication Instructions Home Meds Amoxicillin 250MG/5ML Oral Powder for Suspension 03/05/2022 Unknown ORAL THREE TIMES A DAY 10 mL 028668 RxNorm TAKE 10 mL ORAL THREE TIMES [...] Code System No Known Drug Allergies Active 824898098 SNOMED-CT Plan of Treatment Exposure 07/07/2020 Encounters Encounter Diagnosis Start Date Code Code Sys tem Crushing injury of right hand, initial encounter 01/06 SNOMED-CT Personal Care Team Section Performer Name Performer Role Active Date Inactive Da te
--- OUTSIDE RECORDS SUMMARY | 2024-09-22 09:47 | XMS_ITS ---
Author Organization Unknown Address [address] [place] [address] [phone] Phone Care Team Providers Care Hunting Guide Name Role Phone XAVIER Dang ELSA Registered Nurse Unavailable CORI Peter Attending Unavailable NIKKI Gonsalez ER Unavailable MARCELA Paris Primary Unavailable UNLISTED PROVIDER - REQUESTED Xhandoff Un available Results XR KNEE 4V RT* - Completed: 03/23/2022 19:03 LOINC: RIGHT KNEE - 4 VIEWS:There i s no gross knee joint effusion seen on the lateral view. On the Merchant view, there is a question of a faint lucency projected over the medial aspect of the patella, nondisplaced fracture not excluded but the findings are more likely due to variant apophysis. Correlation with CT is suggested if there is a high clinical suspicion of patellar fracture. Dictated by: JOSE G STONER MD Transcribed by: YOLI 03/28/2211:30 D Friday, March 24, 2022 12:53:42 PM [id number] Electronically Reviewed and Signed By: ANITHA STONER MD 03/29/22 07:51 Copy for: [facility] HEALTH INFORMATION MGMT DISCHARGED Social History Type Status Start Date End Date Code Code Syst em Smoking History Never smoker (Never Smoked) 070561402 SNOMED CT Sex Female Vital Signs Vital Sign Value Unit [place] Value [place] Unit Date/Time Recent/Initial? Code Code System Body Mass Index 19.52 kg/m2 03/23/2022 17:14 Initial 57438 -5 LOINC Body Mass Index Percentile 21 % 03/23/2022 17:14 Initial 55457 -9 LOINC Systolic Blood Pressure 123 mm[Hg] 03/23/2022 17:14 Initial 8480- 6 LOINC Diastolic Blood Pressure 70 mm[Hg] 03/23/2022 17:14 Initial 8462- 4 LOINC Body Surface Area 1.44 m2 03/23/2022 17:14 Initial 3140- 1 LOINC Height 156.210 0 cm 61.50 in 03/23/2022 17:14 Initial 8302- 2 LOINC O2 Saturation 100 % 2021 17:14 Initial 31324 -5 LOINC Pulse 94.0 /min 03/23/2022 17:14 Initial 8867- 4 LOINC Respiration 16 /min 03/23/20 17:14 Initial 9279- 1 LOINC Temperature 36.9 Bella 98.4 F 03/23/20 17:14 Initial 8310- 5 LOINC Weight 47.63 kg 105.00 lbs 03/23/2022 17:14 Initial 35815 -7 LOINC Medications Medication Start Date End Date Route Frequency Dose Code Code System Medication Instructions Home Meds Amoxicillin 250MG/5ML Oral Powder for Suspension 03/05/2022 Unknown ORAL THREE TIMES A DAY 10 mL 278136 RxNorm TAKE 10 mL ORAL THREE TIMES [...] Code System No Known Drug Allergies Active 311328830 SNOMED-CT Plan of Treatment Exposure 07/07/2020 Encounters Encounter Diagnosis Start Date Code Code Sys tem Unspecified fracture of righ t patella, initial encounter for closed fracture 03/23/2022 SNOMED-CT Personal Care Team Section Performer Name Performer Role Active Date Inactive Nader chen
--- OUTSIDE RECORDS SUMMARY | 2024-09-22 09:47 | XMS_ITS ---
Author Organization Unknown Address [address] [place] [address] [phone] Phone Care Team Providers Care Marketing Account Executive Name Role Phone ALICIA Easton Attending Unavailable MARCELA Paris Primary Unavailable Social History Type Status Start Date End Date Code Code Syst em Smoking History Never smoker (Never Smoked) 163489029 SNOMED CT Sex Female Medications Medication Start Date End Date Route Frequency Dose Code Code System Medication Instructions Home Meds Amoxicillin 250MG/5ML Oral Powder for Suspension 03/05/2022 Unknown ORAL THREE TIMES A DAY 10 mL 714038 RxNorm TAKE 10 mL ORAL THREE TIMES [...] Code System No Known Drug Allergies Active 562377116 SNOMED-CT Plan of Treatment Exposure 07/07/2020 Encounters Encounter Diagnosis Start Date Code Code Sys tem 04/03/2022 [id number] SNOMED-CT Personal Care Team Section Performer Name Performer Role Active Date Inactive Da gustavo
--- OUTSIDE RECORDS SUMMARY | 2024-09-22 09:47 | XMS_ITS ---
Author Organization Unknown Address [address] [place] [address] [phone] Phone Care Team Providers Care Tap Grinder Name Role Phone YU LOPES Registered Nurse Unavailable ALEXANDRE Peter Attending Unavailable MARCELA Paris Primary Unavailable UNLISTED PROVIDER - REQUESTED Xhandoff Un available Results [facility] MARUER* - Ivelisse ect Date/Time: 03/05/2022 18:48 [facility] ID: [id number] [address] [place] [address], [phone] LOINC: 49025-2 Test Value Unit Reference Range Code Code System Flag Tier- SYMPTOMS 09525-6 LOINC SARS COV2 RNA: NEGATIVE REFERENCE RANGE: NEGAT 00644-5 L OINC STREP GROUP A ANTIGEN ASSAY - Collect Date/Time: 03/05/2022 18:48 [facility] ID: [id number] [address] [place] [address], [phone] LOINC: 78075-4 Test Value Unit Reference Range Code Code System Flag GRP A STREP ANTIGEN DETECTED 6556-5 LOINC Social History Type Status Start Date End Date Code Code Syst em Smoking History Never smoker (Never Smoked) 554369155 SNOMED CT Sex Female Vital Signs Vital Sign Value Unit [place] Value Warren Unit Date/Time Recent/Initial? Code Code System Body Mass Index 20.03 kg/m2 03/05/2022 18:26 Initial 20737 -5 LOINC Body Mass Index Percentile 28 % 03/05/2022 18:26 Initial 63797 -9 LOINC Systolic Blood Pressure 111 mm[Hg] 03/05/2022 19:24 Most Recent 8480- 6 LOINC Diastolic Blood Pressure 72 mm[Hg] 03/05/2022 19:24 Most Recent 8462- 4 LOINC Systolic Blood Pressure 104 mm[Hg] 03/05/2022 18:26 Initial 8480- 6 LOINC Diastolic Blood Pressure 62 mm[Hg] 03/05/2022 18:26 Initial 8462- 4 LOINC Body Surface Area 1.44 m2 03/05/2022 18:26 Initial 3140- 1 LOINC Height 154.940 0 cm 61.00 in 03/05/2022 18:26 Initial 8302- 2 LOINC O2 Saturation 99 % 2021 19:24 Most Recent 62445 -5 LOINC O2 Saturation 100 % 2021 18:26 Initial 29858 -5 LOINC Pulse 98.0 /min 03/05/2022 19:24 Most Recent 8867- 4 LOINC Pulse 115.0 /min 03/05/2022 18:26 Initial 8867- 4 LOINC Respiration 18 /min 03/05/20 19:24 Most Recent 9279- 1 LOINC Respiration 18 /min 03/05/20 18:26 Initial 9279- 1 LOINC Temperature 37.8 Bella 100.0 F 03/05/20 19:24 Most Recent 8310- 5 LOINC Temperature 38.7 Bella 101.7 F 03/05/20 18:26 Initial 8310- 5 LOINC Weight 48.08 kg 106.00 lbs 03/05/2022 18:26 Initial 38134 -7 LOINC Medications Medication Start Date End Date Route Frequency Dose Code Code System Medication Instructions Home Meds Amoxicillin 250MG/5ML Oral Powder for Suspension 03/05/2022 Unknown ORAL THREE TIMES A DAY 10 mL 727037 RxNorm TAKE 10 mL ORAL THREE TIMES [...] Code System No Known Drug Allergies Active 809108096 SNOMED-CT Plan of Treatment Exposure 07/07/2020 Encounters Encounter Diagnosis Start Date Code Code Sys tem Streptococcal pharyngitis 03/05/2022 SN OMED-CT Personal Care Team Section Performer Name Performer Role Active Date Inactive Da te
--- OUTSIDE RECORDS SUMMARY | 2024-09-22 09:48 | XMS_ITS ---
Author Organization Unknown Address [address] [place] [address] [phone] Phone Care Team Providers Care Cdl Dedicated Truck Driver Name Role Phone ALICIA Easton Attending Unavailable MARCELA Paris Primary Unavailable Social History Type Status Start Date End Date Code Code Syst em Smoking History Never smoker (Never Smoked) 145491436 SNOMED CT Sex Female Medications Medication Start Date End Date Route Frequency Dose Code Code System Medication Instructions Home Meds Amoxicillin 250MG/5ML Oral Powder for Suspension 03/05/2022 Unknown ORAL THREE TIMES A DAY 10 mL 387213 RxNorm TAKE 10 mL ORAL THREE TIMES [...] Code System No Known Drug Allergies Active 280393042 SNOMED-CT Plan of Treatment Exposure 07/07/2020 Encounters Encounter Diagnosis Start Date Code Code Sys tem 04/11/2022 [id number] SNOMED-CT Personal Care Team Section Performer Name Performer Role Active Date Inactive Da gustavo
== END 2024-09-22 09:43 | disposition home or self-care (01) ==
LOC: NCHCN 09:42
PROVIDERS: PCP Nurse Practitioner Family; Visit Provider Family Medicine
DX: J03.90 Acute tonsillitis, unspecified (principal)
CPT/HCPCS: 87070